=== PATIENT | male | born 1945 | race Caucasian/White ===

== ENCOUNTER → 2018-06-11 | Outpatient (CLI) | payer MEDICARE | LOC: LAB FS 09:43 | PROVIDERS: ATTEND Urology | DX: R97.20 Elevated prostate specific antigen [PSA] (principal) | CPT/HCPCS: 36415; 84153 ==

== ENCOUNTER 2023-01-08 19:38 | Emergency (ER) | payer MEDICARE ==
--- NOTE | 2023-01-08 19:48 | ED General ---
General Stated Complaint: FALL History of Present Illness Date Seen by Provider: Jan 08, 2023 Time Seen by Provider: 19:46 Initial Comments 77-year-old male brought in by his following a fall. Patient has a right uvymg-yrg-ntpu amputation. He reports that somehow he fell trying to transfer from his chair to his wheelchair and was a unable to get back up to his wheelchair his chair. Patient reports that he laid there for approximately 4 hours. He did not lose consciousness his eyes and his head. Patient has no other complaints. Allergies and Home Medications Allergies Coded Allergies: No Known Drug Allergies (Unverified , 01/08/23) Patient Home Medication List Home Medication List Reviewed: Yes Atorvastatin Calcium (Atorvastatin Calcium) 40 Mg Tablet, 40 MG PO HS, (Report ed) Entered as Reported by: PIA GARCIA on 01/08/232021 Last Action: New Order Lisinopril (Lisinopril) 10 Mg Tablet, 10 MG PO DAILY, (Reported) Entered as Reported by: PIA GARCIA on 01/08/232021 Last Action: New Order Tamsulosin HCl (Flomax) 0.4 Mg Cap, (Reported) Entered as Reported by: PIA GARCIA on 01/08/232021 Last Action: New Order Review of Systems Review of Systems Constitutional: No chills, No fever EENTM: no symptoms reported Respiratory: no symptoms reported Cardiovascular: no symptoms reported Gastrointestinal: no symptoms reported Genitourinary: no symptoms reported Musculoskeletal: see HPI Skin: no symptoms reported Psychiatric/Neurological: No Symptoms Reported Physical Exam Vital Signs Capillary Refill : Height, Weight, BMI Height: '" Weight: lbs. oz. 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 Skin: Normal Color, Warm/Dry Progress/Results/Core Measures Suspected Sepsis SIRS Temperature: Pulse: Respiratory Rate: Laboratory Tests 01/08/23 19:55: White Blood Count 7.0 Blood Pressure / Mean: Laboratory Tests 01/08/23 19:55: Creatinine 1.25, Platelet Count 99L, Total Bilirubin 1.0 Results/Orders Lab Results Laboratory Tests Test 01/08/23 19:55 Range/Units White Blood Count 7.0 4.3-11.0 10^3/uL Red Blood Count 4.58 4.30-5.52 10^6/uL Hemoglobin 15.1 13.3-17.7 g/dL Hematocrit 46 40-54 % Mean Corpuscular Volume 99 80-99 fL Mean Corpuscular Hemoglobin 33 25-34 pg Mean Corpuscular Hemoglobin Concent 33 32-36 g/dL Red Cell Distribution Width 13.8 10.0-14.5 % Platelet Count 99 L 130-400 10^3/uL Mean Platelet Volume 12.8 H 9.0-12.2 fL Immature Granulocyte % (Auto) 0 % Neutrophils (%) (Auto) 86 H 42-75 % Lymphocytes (%) (Auto) 6 L 12-44 % Monocytes (%) (Auto) 5 0-12 % Eosinophils (%) (Auto) 2 0-10 % Basophils (%) (Auto) 0 0-10 % Neutrophils # (Auto) 6.0 1.8-7.8 10^3/uL Lymphocytes # (Auto) 0.4 L 1.0-4.0 10^3/uL Monocytes # (Auto) 0.4 0.0-1.0 10^3/uL Eosinophils # (Auto) 0.2 0.0-0.3 10^3/uL Basophils # (Auto) 0.0 0.0-0.1 10^3/uL Immature Granulocyte # (Auto) 0.0 0.0-0.1 10^3/uL Neutrophils % (Manual) 87 % Lymphocytes % (Manual) 9 % Monocytes % (Manual) 2 % Eosinophils % (Manual) 2 % Platelet Estimate DECREASED Blood Morphology Comment NORMAL Sodium Level 137 135-145 MMOL/L Potassium Level 4.0 3.6-5.0 MMOL/L Chloride Level 102 98-107 MMOL/L Carbon Dioxide Level 20 L 21-32 MMOL/L Anion Gap 15 H 5-14 MMOL/L Blood Urea Nitrogen 25 H 7-18 MG/DL Creatinine 1.25 0.60-1.30 MG/DL Estimat Glomerular Filtration Rate 60 BUN/Creatinine Ratio 20 Glucose Level 106 H 70-105 MG/DL Calcium Level 9.2 8.5-10.1 MG/DL Corrected Calcium 9.6 8.5-10.1 MG/DL Magnesium Level 2.2 1.6-2.4 MG/DL Total Bilirubin 1.0 0.1-1.0 MG/DL Aspartate Amino Transf (AST/SGOT) 21 5-34 U/L Alanine Aminotransferase (ALT/SGPT) 15 0-55 U/L Alkaline Phosphatase 71 40-136 U/L Troponin I < 0.30 <0.30 NG/ML Total Protein 7.8 6.4-8.2 GM/DL Albumin 3.5 3.2-4.5 GM/DL My Orders Orders - LIN,MARISOL L DO Cbc And Automated Diff (01/08/23 19:43) Comprehensive Metabolic Panel (01/08/23 19:43) Magnesium (01/08/23 19:43) Ua Culture If Indicated (01/08/23 19:43) Troponin I Fs (01/08/23 19:43) Ekg Tracing (01/08/23 19:43) Monitor-Rhythm Ecg Trace Only (01/08/23 19:43) Manual Differential (01/08/23 19:55) Ns Iv 1000 Ml (Ns Iv 1000 Ml) (01/08/23 20:51) Vital Signs/I&O Capillary Refill : Progress Note : Progress Note Patient with a mechanical fall due to gait instability from a right AKA. Patient's diagnostics as ordered reviewed and interpreted by me with no acute findings. He was mildly dehydrated. Patient was rehydrated and was feeling much better. Patient's family did arrive and will work with him to arrange a system for him to be checked on or have a Lifeline or similar protective measures in place. Patient was ready to be discharged home. He does report he has an appointment with urologist tomorrow. Patient was stable upon discharge. 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 Referrals: [facility] (PCP) Primary Care Physician JOAQUÍN ALAN MD (Family) Primary Care Physician Patient Instructions: Dehydration, Adult ED, Preventing Falls ED Add. Discharge Instructions: Please keep your appointment with your primary care doctors and urologist that you already have made. Please consider getting a Lifeline or similar monitor to help if you would fall again. MARISOL LIN DO Jan 08, 2023 19:48
[2023-01-08 20:00] LABS: BASOPHILS % (AUTO) 0 % (0-10); EOSINOPHILS # (AUTO) 0.2 10^3/uL (0.0-0.3); EOSINOPHILS % (AUTO) 2 % (0-10); HEMATOCRIT 46 % (40-54); HEMOGLOBIN 15.1 g/dL (13.3-17.7); LYMPHOCYTES # (AUTO) 0.4 10^3/uL (1.0-4.0); LYMPHOCYTES % (AUTO) 6 % (12-44); MEAN CORPUSCULAR HEMOGLOBIN 33 pg (25-34); MEAN CORPUSCULAR HGB CONC 33 g/dL (32-36); MEAN CORPUSCULAR VOLUME 99 fL (80-99); MEAN PLATELET VOLUME 12.8 fL (9.0-12.2); MONOCYTES # (AUTO) 0.4 10^3/uL (0.0-1.0); MONOCYTES % (AUTO) 5 % (0-12); NEUTROPHILS % (AUTO) 86 % (42-75); PLATELET COUNT 99 10^3/uL (130-400)
[2023-01-08] MEDS ORDERED: TMSL.4C (20:22)
[2023-01-08] MEDS ORDERED: ATOR40TA70 PO (20:22)
[2023-01-08] MEDS ORDERED: LISI10TA25 PO (20:22)
[2023-01-08 20:24] LABS: EOSINOPHILS % (MANUAL) 2 %; LYMPHOCYTES % (MANUAL) 9 %; MONOCYTES % (MANUAL) 2 %; NEUTROPHILS % (MANUAL) 87 %; PLATELET ESTIMATE DECREASED; RBC MORPH NORMAL
[2023-01-08 20:25] LABS: BUN/CREATININE RATIO 20; CALCIUM 9.2 MG/DL (8.5-10.1); CARBON DIOXIDE 20 MMOL/L (21-32); CHLORIDE 102 MMOL/L (98-107); CREATININE SERUM 1.25 MG/DL (0.60-1.30); GFR ESTIMATED 60; GLUCOSE 106 MG/DL (70-105); SODIUM 137 MMOL/L (135-145)
[2023-01-08 20:26] LABS: ALANINE AMINOTRANSFERASE 15 U/L (0-55); ALBUMIN 3.5 GM/DL (3.2-4.5); ALKALINE PHOSPHATASE 71 U/L (40-136); MAGNESIUM 2.2 MG/DL (1.6-2.4); TOTAL PROTEIN 7.8 GM/DL (6.4-8.2)
[2023-01-08] MEDS ORDERED: NS IV 1000 ML 1,000 ML IV STA (20:51)
[2023-01-08 22:10] VITALS: BP 130/86
== END 2023-01-08 22:15 | disposition home or self-care (01) ==
LOC: EDUNIT# 19:38 → ER FS 19:39
DX: R26.89 Other abnormalities of gait and mobility (principal); E86.0 Dehydration; Z89.611 Acquired absence of right leg above knee; W19.XXXA Unspecified fall, initial encounter
CPT/HCPCS: 36415; 80053; 83735; 84484; 85007; 85027; 93005; 93041

== ENCOUNTER 2023-01-20 17:41 | Emergency (ER) | payer MEDICARE ==
[~2023-01-20] VITALS: Ht 170 cm; Wt 72.0 kg
[~2023-01-20 17:41] MED LIST: ATOR40TA70 PO; LISI10TA25 PO; TMSL.4C
--- NOTE | 2023-01-20 18:42 | ED General ---
General Chief Complaint: Neurological Problems Stated Complaint: WEAKNESS Nursing Triage Note: PT TO ED FOR C/O GENERALIZED WEAKNESS ONSET X1 WK. PT'S FRIEND REPORTS PT WAS FOUND ON THE FLOOR AT HOME, WAS TREATED AT THAT TIME AT [facility]. PT ALSO REPORTS BEING TREATED FOR UTI. PT'S FRIEND REPORTS PT HAS BEEN "IN A FOG" SINCE FALLING. NO OTHER C/O VOICED. Source of Information: Patient, Other (neighbor) Exam Limitations: No Limitations History of Present Illness Date Seen by Provider: Jan 20, 2023 Time Seen by Provider: 18:00 Initial Comments 77-year-old male presents to the ER with complaint of weakness for approximately the last week. He states that a week and a half ago he was found on the floor by his neighbor and brought to the emergency room in [place]. Received IV fluids at that time and was discharged. States that he has generally not felt well since then. The next day he saw his urologist who diagnosed him with a UTI and started him on an antibiotic. He is complains of sleeping all day, and feeling foggy. He states that he urinates frequently, denies dysuria. Denies dizziness, chest pain, shortness of air, abdominal pain, nausea, vomiting, diarrhea. He does drink alcohol daily, states he drinks approximately 2 ounces. 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 States it was likely related to his smoking. Patient still smokes. Patient states he does not drink a lot of water. Allergies and Home Medications Allergies Coded Allergies: No Known Drug Allergies (Unverified , 01/08/23) Patient Home Medication List Home Medication List Reviewed: Yes Atorvastatin Calcium (Atorvastatin Calcium) 40 Mg Tablet, 40 MG PO HS, (Reported) Entered as Reported by: PIA GARCIA on 01/08/232021 Cefuroxime Axetil (Cefuroxime) 500 Mg Tablet, 500 MG PO BID Prescribed by: Aniya Bean on 01/20/232132 Lisinopril (Lisinopril) 10 Mg Tablet, 10 MG PO DAILY, (Reported) Entered as Reported by: PIA GARCIA on 01/08/232021 Tamsulosin HCl (Flomax) 0.4 Mg Cap, (Reported) Entered as Reported by: PIA GARCIA on 01/08/232021 Review of Systems Review of Systems Constitutional: see HPI Past Nmoztzc-Ejvyyf-Aepfon Hx Patient Social History Tobacco Use?: No Use of E-Cig and/or Vaping dev: Yes Use of E-Cig and/or Vaping [place]: Current Everyday User Substance use?: No Alcohol Use?: Yes Alcohol Frequency: Daily Pt feels they are or have been: No Immunizations Up To Date First/Initial COVID19 Vaccinat: Date ? Second COVID19 Vaccination Bakari: Date ? Third COVID19 Vaccination Date: Date ? Past Medical History Surgery/Hospitalization HX: poor historian: R AKA, HTN, Hyperlipidemia Physical Exam Vital Signs Vital Signs - First Documented 01/20/23 18:22 Temp 37.0 Pulse 80 Resp 20 B/P (MAP) 134/95 (108) Pulse Ox 98 O2 Delivery Room Air Capillary Refill : Less Than 3 Seconds Height, Weight, BMI Height: '" Weight: lbs. oz. kg; 24.00 BMI Method: General Appearance: No Apparent Distress, WD/WN Neck: Normal Inspection, Supple Respiratory: Lungs Clear, Normal Breath Sounds, No Accessory Muscle Use, No Respiratory Distress Cardiovascular: Regular Rate, Rhythm Extremity: Normal Inspection, Normal Range of Motion, Other (Prosthesis on right smbzk-axg-dkwv amputation) Neurologic/Psychiatric: Alert, Normal Mood/Affect Skin: Normal Color, Warm/Dry Progress/Results/Core Measures Suspected Sepsis SIRS Temperature: Pulse: 80 Respiratory Rate: 20 Laboratory Tests 01/20/23 19:00: White Blood Count 6.8 Blood Pressure 134 /95 Mean: 108 Laboratory Tests 01/20/23 19:00: Creatinine 1.18, Platelet Count 154, Total Bilirubin 1.0 Results/Orders Lab Results Laboratory Tests Test 01/20/23 19:00 01/20/23 20:37 Range/Units White Blood Count 6.8 4.3-11.0 10^3/uL Red Blood Count 4.23 L 4.30-5.52 10^6/uL Hemoglobin 13.5 13.3-17.7 g/dL Hematocrit 42 40-54 % Mean Corpuscular Volume 99 80-99 fL Mean Corpuscular Hemoglobin 32 25-34 pg Mean Corpuscular Hemoglobin Concent 32 32-36 g/dL Red Cell Distribution Width 13.4 10.0-14.5 % Platelet Count 154 130-400 10^3/uL Mean Platelet Volume 12.7 H 9.0-12.2 fL Immature Granulocyte % (Auto) 1 % Neutrophils (%) (Auto) 68 42-75 % Lymphocytes (%) (Auto) 17 12-44 % Monocytes (%) (Auto) 9 0-12 % Eosinophils (%) (Auto) 5 0-10 % Basophils (%) (Auto) 1 0-10 % Neutrophils # (Auto) 4.6 1.8-7.8 10^3/uL Lymphocytes # (Auto) 1.1 1.0-4.0 10^3/uL Monocytes # (Auto) 0.6 0.0-1.0 10^3/uL Eosinophils # (Auto) 0.3 0.0-0.3 10^3/uL Basophils # (Auto) 0.1 0.0-0.1 10^3/uL Immature Granulocyte # (Auto) 0.1 0.0-0.1 10^3/uL Sodium Level 135 135-145 MMOL/L Potassium Level 4.2 3.6-5.0 MMOL/L Chloride Level 106 98-107 MMOL/L Carbon Dioxide Level 20 L 21-32 MMOL/L Anion Gap 9 5-14 MMOL/L Blood Urea Nitrogen 13 7-18 MG/DL Creatinine 1.18 0.60-1.30 MG/DL Estimat Glomerular Filtration Rate 64 BUN/Creatinine Ratio 11 Glucose Level 101 70-105 MG/DL Calcium Level 8.8 8.5-10.1 MG/DL Corrected Calcium 9.3 8.5-10.1 MG/DL Magnesium Level 2.1 1.6-2.4 MG/DL Total Bilirubin 1.0 0.1-1.0 MG/DL Aspartate Amino Transf (AST/SGOT) 17 5-34 U/L Alanine Aminotransferase (ALT/SGPT) 18 0-55 U/L Alkaline Phosphatase 50 40-136 U/L B-Type Natriuretic Peptide 127.7 H <100.0 PG/ML Total Protein 7.0 6.4-8.2 GM/DL Albumin 3.4 3.2-4.5 GM/DL Serum Alcohol < 10 <10 MG/DL Urine Color YELLOW Urine Clarity CLEAR Urine pH 6.0 5-9 Urine Specific [place] 1.010 L 1.016-1.022 Urine Protein NEGATIVE NEGATIVE Urine Glucose (UA) NEGATIVE NEGATIVE Urine Ketones NEGATIVE NEGATIVE Urine Nitrite NEGATIVE NEGATIVE Urine Bilirubin NEGATIVE NEGATIVE Urine Urobilinogen 0.2 < = 1.0 MG/DL Urine Leukocyte Esterase 3+ H NEGATIVE Urine RBC (Auto) 1+ H NEGATIVE Urine RBC 2-5 H /HPF Urine WBC 10-25 H /HPF Urine Squamous Epithelial Cells 0-2 /HPF Urine Crystals PRESENT H /LPF Urine Amorphous Sediment RARE RICHARD URATES H /LPF Urine Bacteria FEW H /HPF Urine Casts NONE /LPF Urine Mucus NEGATIVE /LPF Urine Culture Indicated YES My Orders Orders - ANIYA CHINO APRN Cbc And Automated Diff (01/20/23 18:36) Magnesium (01/20/23 18:36) Chest 1 View, Ap/Pa Only (01/20/23 18:36) Ekg Tracing (01/20/23 18:36) Comprehensive Metabolic Panel (01/20/23 18:36) Monitor-Rhythm Ecg Trace Only (01/20/23 18:36) Ed Iv/Invasive Line Start (01/20/23 18:36) Ua Culture If Indicated (01/20/23 18:36) Ns Iv 1000 Ml (Ns Iv 1000 Ml) (01/20/23 18:45) Alcohol (01/20/23 18:42) Bnp Reynolds (01/20/23 19:05) Urine Culture (01/20/23 20:37) Ceftriaxone Iv/Im (Ceftriaxone Iv/Im) (01/20/23 21:45) Medications Given in ED Current Medications Medications Dose Ordered Sig/Alfred Route Start Time Stop Time Status Last Admin Dose Admin Ceftriaxone Sodium 1000 mg/ Sodium Chloride 50 ml @ 100 mls/hr ONCE ONCE IV 01/20/23 21:45 01/20/23 22:14 01/20/23 21:50 100 MLS/HR Vital Signs/I&O 01/20/23 18:22 Temp 37.0 Pulse 80 Resp 20 B/P (MAP) 134/95 (108) Pulse Ox 98 O2 Delivery Room Air Capillary Refill : Less Than 3 Seconds Blood Pressure Mean: 108 Progress Note : Progress Note Patient seen and evaluated, resting comfortably in bed, no acute distress. Based on exam and symptoms, work-up initiated including CBC, CMP, magnesium EKG, chest x-ray, UA. 1 L of IV fluids ordered. 2130 Labs and imaging reviewed. Chest x-ray shows mild central vascular congestion, no consolidation or pneumothorax. Heart size appears normal. CBC grossly normal. CMP grossly normal. CO2 slightly decreased 20. GFR decreased 64, similar to labs drawn on 01/08/2023. Creatinine and BUN normal. BNP is elevated indicating increased left ventricular end diastolic dilatation which may be seen in CHF. Mildly elevated 127.7. Serum alcohol negative. Urinalysis shows 3+ leukocytes, 1+ RBCs, 10-25 WBCs, few bacteria. He reports that he has not been taking his clindamycin consistently because he states it makes him feel unwell. Will give Rocephin and discharge with cefuroxime instead in hopes that patient will tolerate this better. Patient instructed to follow-up with urology and his UTI. And to follow-up with primary care provider regarding the vascular congestion. Patient is stable for discharge. Discharge instructions and return precautions provided. ECG Initial ECG Impression Date: Jan 20, 2023 Initial ECG Impression Time: 18:50 Initial ECG Rate: 74 Initial ECG Rhythm: Normal Sinus Initial ECG Intervals: NM (207) Initial ECG Impression: Nonspecific Changes Initial ECG Comparisson: Unchanged Comment New prolonged NM interval. Slight ST elevation in V2, no elevation in the other leads, no significant Q waves or T wave inversion. EKG appears similar to EKG done on 01/08, except for new increased NM interval. Diagnostic Imaging Diagonstic Imaging: Xray Plain Films/CT/US/NM/MRI: chest Comments [facility] [place], [place] NAME: ELIANE [facility] REC#: [id number] PT STATUS: REG ER : 1945 PHYSICIAN: ANIYA CHINO APRN ADMIT DATE: 01/20/23/ER Signed Date of Exam:01/20/23 CHEST 1 VIEW, AP/PA ONLY Indication: Chest pain and weakness, patient was found down Frontal chest obtained at 7:00 hours p.m. Heart and mediastinal silhouette are normal in appearance. There is mild central vascular congestion. There is no focal infiltrate or pneumothorax or pleural fluid. IMPRESSION: Mild central vascular congestion. No consolidation or pneumothorax or pleural fluid. Dictated by: Dictated on workstation # [id number] Dict: 01/20/231858 Trans: 01/20/231914 SANDEEP [id number] Interpreted by: EVI LEROY MD Electronically signed by: EVI LEROY MD 01/20/231914 Departure Impression Primary Impression: Urinary tract infection Disposition: 01 HOME, SELF-CARE Condition: Stable Departure-Patient Inst. Decision time for Depature: 21:31 Referrals: JOAQUÍN ALAN MD (PCP/Family) Primary Care Physician Patient Instructions: Urinary tract infections in adults Add. Discharge Instructions: Complete full course of cefuroxime as prescribed. You will take it twice a day for 10 days. Dispose of your ciprofloxacin. Follow-up with your urologist. Follow-up with your primary care provider regarding the extra fluid on your lungs. You may need an echocardiogram. Return for any new, concerning, or worsening symptoms. All discharge instructions reviewed with patient and/or family. Voiced understanding. Scripts Cefuroxime Axetil (Cefuroxime) 500 Mg Tablet 500 MG PO BID for 10 Days, #20 TAB 0 Refills Prov: ANIYA CHINO APRN 01/20/23 Copy Copies To 1: JOAQUÍN ALAN MD, BRITTANY R APRN Jan 20, 2023 18:42
[2023-01-20] MEDS ORDERED: NS IV 1000 ML 1,000 ML IV SCH (18:45)
--- NOTE | 2023-01-20 19:01 | Diagnostic Imaging Report ---
Indication: Chest pain and weakness, patient was found down Frontal chest obtained at 7:00 hours p.m. Heart and mediastinal silhouette are normal in appearance. There is mild central vascular congestion. There is no focal infiltrate or pneumothorax or pleural fluid. IMPRESSION: Mild central vascular congestion. No consolidation or pneumothorax or pleural fluid. Dictated by: Dictated on workstation # [id number]
[2023-01-20 19:13] LABS: BASOPHILS # (AUTO) 0.1 10^3/uL (0.0-0.1); BASOPHILS % (AUTO) 1 % (0-10); EOSINOPHILS # (AUTO) 0.3 10^3/uL (0.0-0.3); EOSINOPHILS % (AUTO) 5 % (0-10); HEMATOCRIT 42 % (40-54); HEMOGLOBIN 13.5 g/dL (13.3-17.7); LYMPHOCYTES # (AUTO) 1.1 10^3/uL (1.0-4.0); LYMPHOCYTES % (AUTO) 17 % (12-44); MEAN CORPUSCULAR HEMOGLOBIN 32 pg (25-34); MEAN CORPUSCULAR HGB CONC 32 g/dL (32-36); MEAN CORPUSCULAR VOLUME 99 fL (80-99); MEAN PLATELET VOLUME 12.7 fL (9.0-12.2); MONOCYTES # (AUTO) 0.6 10^3/uL (0.0-1.0); MONOCYTES % (AUTO) 9 % (0-12); NEUTROPHILS # (AUTO) 4.6 10^3/uL (1.8-7.8); NEUTROPHILS % (AUTO) 68 % (42-75); PLATELET COUNT 154 10^3/uL (130-400); WHITE BLOOD COUNT 6.8 10^3/uL (4.3-11.0)
[2023-01-20 19:28] LABS: ALBUMIN 3.4 GM/DL (3.2-4.5); CHLORIDE 106 MMOL/L (98-107); POTASSIUM 4.2 MMOL/L (3.6-5.0); SODIUM 135 MMOL/L (135-145)
[2023-01-20 19:29] LABS: CALCIUM 8.8 MG/DL (8.5-10.1)
[2023-01-20 19:30] LABS: GLUCOSE 101 MG/DL (70-105)
[2023-01-20 19:31] LABS: CARBON DIOXIDE 20 MMOL/L (21-32)
[2023-01-20 19:34] LABS: ALKALINE PHOSPHATASE 50 U/L (40-136); CREATININE SERUM 1.18 MG/DL (0.60-1.30); GFR ESTIMATED 64
[2023-01-20 19:35] LABS: BUN/CREATININE RATIO 11
[2023-01-20 19:37] LABS: ALANINE AMINOTRANSFERASE 18 U/L (0-55); MAGNESIUM 2.1 MG/DL (1.6-2.4)
[2023-01-20 21:18] LABS: BILIRUBIN,URINE NEGATIVE (NEGATIVE); CLARITY,URINE CLEAR; COLOR,URINE YELLOW; GLUCOSE, URINE (UA) NEGATIVE (NEGATIVE); KETONES,URINE NEGATIVE (NEGATIVE); NITRITE,URINE NEGATIVE (NEGATIVE); PROTEIN,URINE NEGATIVE (NEGATIVE)
[2023-01-20 21:19] LABS: AMORPHOUS SEDIMENT,UR RARE AMOR URATES /LPF; BACTERIA,URINE FEW /HPF; LEUKOCYTE ESTERASE ,URINE 3+ (NEGATIVE); SQUAMOUS EPITHELIAL CELL,UR 0-2 /HPF
[2023-01-20] MEDS ORDERED: CEFU500T63 PO (21:33)
[2023-01-20] MEDS ORDERED: cefTRIAXone IV/IM 1,000 MG in NS (IVPB) 50 ML 50 ML IV ONE (21:45)
[2023-01-20 22:31] VITALS: BP 148/98
== END 2023-01-20 22:25 | disposition home or self-care (01) ==
LOC: EDUNIT# 17:41 → ER 17:43
DX: N39.0 Urinary tract infection, site not specified (principal); F17.290 Nicotine dependence, other tobacco product, uncomplicated
CPT/HCPCS: 71045; 80053; 81000; 83735; 83880; 85025; 87088; 93005; 99284; G0480; 36415; 80320

== ENCOUNTER 2023-02-04 21:33 | Inpatient (IN) | payer MEDICARE ==
[~2023-02-04] VITALS: Ht 170.2 cm; Wt 58.6 kg
[~2023-02-04 21:33] MED LIST changes: +CEFU500T63 PO; -TMSL.4C; +TMSL.4C PO
--- NOTE | 2023-02-04 21:41 | ED General ---
General Stated Complaint: FALL Source of Information: Patient Exam Limitations: No Limitations History of Present Illness Date Seen by Provider: Feb 04, 2023 Time Seen by Provider: 21:27 Initial Comments 77-year-old male presents to the emergency department today after he was found in his home on the floor by his neighbor. He lives at home by himself and has had several similar instances, most recently on January 08. His neighbors come to check on him intermittently. They state they had not checked on him since Saturday. When he went over this evening he found him in the floor. He does not know how long he has been there. When asked how he fell he states "who said I fell." When discussing the neighbors recollection of events he states "he is full of shit." He denies any pain anywhere. I discussed this with his 2 friends who are bedside and they state he is usually "sharp as attack" and that the confusion is quite abnormal for him. All other systems reviewed and negative except documented per HPI. Voice recognition software was used to help create this chart Allergies and Home Medications Allergies Coded Allergies: No Known Drug Allergies (Unverified , 01/08/23) Patient Home Medication List Home Medication List Reviewed: Yes Atorvastatin Calcium (Atorvastatin Calcium) 40 Mg Tablet, 40 MG PO HS, (Reported) Entered as Reported by: PIA GARCIA on 01/08/232021 Cefuroxime Axetil (Cefuroxime) 500 Mg Tablet, 500 MG PO BID Prescribed by: Aniya Bean on 01/20/232132 Lisinopril (Lisinopril) 10 Mg Tablet, 10 MG PO DAILY, (Reported) Entered as Reported by: PIA GARCIA on 01/08/232021 Tamsulosin HCl (Flomax) 0.4 Mg Cap, (Reported) Entered as Reported by: PIA GARCIA on 01/08/232021 Review of Systems Review of Systems Constitutional: see HPI Past Xjnwclk-Acowfh-Gvmive Hx Patient Social History Tobacco Use?: No Use of E-Cig and/or Vaping dev: No Substance use?: No Alcohol Use?: No Immunizations Up To Date First/Initial COVID19 Vaccinat: Date ? Second COVID19 Vaccination Bakari: Date ? Third COVID19 Vaccination Date: Date ? Past Medical History Surgery/Hospitalization HX: poor historian: Jai RAWLS HTN, Hyperlipidemia Physical Exam Vital Signs Vital Signs - First Documented 02/04/23 21:33 Temp 36.7 Pulse 117 Resp 20 B/P (MAP) 134/101 (112) Pulse Ox 100 O2 Delivery Room Air Capillary Refill : Height, Weight, BMI Height: '" Weight: lbs. oz. kg; 24.00 BMI Method: General Appearance: No Apparent Distress, WD/WN HEENT: PERRL/EOMI, Normal ENT Inspection, Pharynx Normal Neck: Normal Inspection, Non Tender, Supple Respiratory: Chest Non Tender, Lungs Clear, Normal Breath Sounds, No Accessory Muscle Use, No Respiratory Distress Cardiovascular: Regular Rate, Rhythm, No Murmur, Normal Peripheral Pulses Gastrointestinal: Normal Bowel Sounds, No Organomegaly, Non Tender, Soft Extremity: Other (Right kabka-stq-fqpl amputation. 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 There is no skin breakdown.) Progress/Results/Core Measures Suspected Sepsis SIRS Temperature: Pulse: Respiratory Rate: Laboratory Tests 02/04/23 21:45: White Blood Count 6.8 Blood Pressure / Mean: Laboratory Tests 02/04/23 21:45: Creatinine 1.58H, Platelet Count 119L Results/Orders Lab Results Laboratory Tests Test 02/04/23 21:45 02/05/23 00:00 Range/Units White Blood Count 6.8 4.3-11.0 10^3/uL Red Blood Count 4.94 4.30-5.52 10^6/uL Hemoglobin 15.9 13.3-17.7 g/dL Hematocrit 50 40-54 % Mean Corpuscular Volume 102 H 80-99 fL Mean Corpuscular Hemoglobin 32 25-34 pg Mean Corpuscular Hemoglobin Concent 32 32-36 g/dL Red Cell Distribution Width 13.5 10.0-14.5 % Platelet Count 119 L 130-400 10^3/uL Mean Platelet Volume 12.5 H 9.0-12.2 fL Immature Granulocyte % (Auto) 1 % Neutrophils (%) (Auto) 69 42-75 % Lymphocytes (%) (Auto) 15 12-44 % Monocytes (%) (Auto) 12 0-12 % Eosinophils (%) (Auto) 2 0-10 % Basophils (%) (Auto) 1 0-10 % Neutrophils # (Auto) 4.7 1.8-7.8 10^3/uL Lymphocytes # (Auto) 1.0 1.0-4.0 10^3/uL Monocytes # (Auto) 0.8 0.0-1.0 10^3/uL Eosinophils # (Auto) 0.1 0.0-0.3 10^3/uL Basophils # (Auto) 0.1 0.0-0.1 10^3/uL Immature Granulocyte # (Auto) 0.0 0.0-0.1 10^3/uL Sodium Level 133 L 135-145 MMOL/L Potassium Level 5.0 3.6-5.0 MMOL/L Chloride Level 101 98-107 MMOL/L Carbon Dioxide Level 16 L 21-32 MMOL/L Anion Gap 16 H 5-14 MMOL/L Blood Urea Nitrogen 21 H 7-18 MG/DL Creatinine 1.58 H 0.60-1.30 MG/DL Estimat Glomerular Filtration Rate 45 BUN/Creatinine Ratio 13 Glucose Level 93 70-105 MG/DL Calcium Level 9.4 8.5-10.1 MG/DL Urine Color YELLOW Urine Clarity CLOUDY Urine pH 6.0 5-9 Urine Specific [place] 1.025 H 1.016-1.022 Urine Protein TRACE H NEGATIVE Urine Glucose (UA) NEGATIVE NEGATIVE Urine Ketones 1+ H NEGATIVE Urine Nitrite NEGATIVE NEGATIVE Urine Bilirubin 1+ H NEGATIVE Urine Urobilinogen 0.2 < = 1.0 MG/DL Urine Leukocyte Esterase 3+ H NEGATIVE Urine RBC (Auto) 2+ H NEGATIVE Urine RBC 0-2 /HPF Urine WBC 25-50 H /HPF Urine Squamous Epithelial Cells RARE /HPF Urine Renal Epithelial Cells RARE /HPF Urine Crystals PRESENT H /LPF Urine Calcium Oxalate Crystals RARE H /LPF Urine Bacteria NEGATIVE /HPF Urine Casts PRESENT /LPF Urine Hyaline Casts 2-5 H /LPF Urine Mucus LARGE H /LPF Urine Culture Indicated YES My Orders Orders - DUYEN READ DO Cbc And Automated Diff (02/04/23 21:38) Basic Metabolic Panel (02/04/23 21:38) Ns Iv 500 Ml (Ns Iv 500 Ml) (02/04/23 22:30) Ct Head Wo (02/04/23 22:35) Ua Culture If Indicated (02/04/23 22:35) Ed Admission (Communication) (02/04/23 23:07) Urine Culture (02/05/23 00:00) Vital Signs/I&O 02/04/23 21:33 Temp 36.7 Pulse 117 Resp 20 B/P (MAP) 134/101 (112) Pulse Ox 100 O2 Delivery Room Air 02/05/23 00:00 Intake Total 500 ml Balance 500 ml Capillary Refill : Departure Communication (Admissions) Patient is hemodynamically stable, neurovascular intact though he is quite confused. He continues to think that his is " in my house." She actually for 5 years ago from a heart attack. Unfortunately there is also very complicated social situation which his children apparently are not really very helpful in his care. He is still his own medical decision maker at present. He has 2 friends that come and check on him fairly regularly but this is getting more more difficult. With his level of confusion and recent falls I do not think he is safe to go home. He does not have any apparent injuries from his falls he is somewhat dehydrated with normal RODRIGO evidenced by his elevated creatinine and BUN. He is given some IV fluids here and I spoke with Dr. Cedeño who accepts the patient in admission. He is unclear the cause of his confusion at this time. CT scan of his head is negative for any acute intracranial abnormalities. I have inability reviewed these images. He is afebrile, nontoxic, no evidence for meningitis, encephalitis. He may have sleep deprivation from being on the floor which could cause a similar appearance. This may also be related to UTI, which his friend states he has had recently. He was unable to provide a urine sample and refused catheter here so we will wait him to pass urine however he has no leukocytosis and he is afebrile, not a septic picture. Impression Primary Impression: Confusion Additional Impression: Dehydration Disposition: 30 STILL A PATIENT Condition: Stable Admissions Decision to Admit Reason: Admit from ER (General) Departure-Patient Inst. Referrals: JOAQUÍN ALAN MD (PCP/Family) Primary Care Physician DUYEN READ DO Feb 04, 2023 21:40
[2023-02-04 21:53] LABS: BASOPHILS # (AUTO) 0.1 10^3/uL (0.0-0.1); BASOPHILS % (AUTO) 1 % (0-10); EOSINOPHILS # (AUTO) 0.1 10^3/uL (0.0-0.3); EOSINOPHILS % (AUTO) 2 % (0-10); HEMATOCRIT 50 % (40-54); HEMOGLOBIN 15.9 g/dL (13.3-17.7); LYMPHOCYTES % (AUTO) 15 % (12-44); MEAN CORPUSCULAR HEMOGLOBIN 32 pg (25-34); MEAN CORPUSCULAR HGB CONC 32 g/dL (32-36); MEAN CORPUSCULAR VOLUME 102 fL (80-99); MEAN PLATELET VOLUME 12.5 fL (9.0-12.2); MONOCYTES # (AUTO) 0.8 10^3/uL (0.0-1.0); MONOCYTES % (AUTO) 12 % (0-12); NEUTROPHILS # (AUTO) 4.7 10^3/uL (1.8-7.8); NEUTROPHILS % (AUTO) 69 % (42-75); PLATELET COUNT 119 10^3/uL (130-400); WHITE BLOOD COUNT 6.8 10^3/uL (4.3-11.0)
[2023-02-04 22:18] LABS: CALCIUM 9.4 MG/DL (8.5-10.1); CREATININE SERUM 1.58 MG/DL (0.60-1.30)
[2023-02-04] MEDS: NS IV 500 ML 500 ML IV SCH ×2 (22:26→22:45)
[2023-02-05] VITALS (7 sets, daily range): BP systolic 110–160; BP diastolic 70–92
[2023-02-05 00:11] LABS: CLARITY,URINE CLOUDY; COLOR,URINE YELLOW; GLUCOSE, URINE (UA) NEGATIVE (NEGATIVE); KETONES,URINE 1+ (NEGATIVE); LEUKOCYTE ESTERASE ,URINE 3+ (NEGATIVE); NITRITE,URINE NEGATIVE (NEGATIVE); PROTEIN,URINE TRACE (NEGATIVE)
[2023-02-05 00:22] LABS: BACTERIA,URINE NEGATIVE /HPF; BILIRUBIN,URINE 1+ (NEGATIVE); RBC,URINE 0-2 /HPF; SQUAMOUS EPITHELIAL CELL,UR RARE /HPF; WBC,URINE 25-50 /HPF
[2023-02-05 00:23] LABS: CALCIUM OXALATE CRYSTALS,UR RARE /LPF; RENAL EPITHELIAL CELLS,URINE RARE /HPF
[2023-02-05] MEDS ORDERED: ONDANSETRON INJECTION 4 MG/2 ML (SDV) IV PRN ×3 (02:00→10:00)
[2023-02-05] MEDS ORDERED: NS IV 1000 ML 1,000 ML IV SCH (02:00)
[2023-02-05] MEDS ORDERED: MILK OF MAGNESIA 400 MG/5 ML 30 ML UDC PO PRN (05:15)
[2023-02-05] MEDS ORDERED: diphenhydrAMINE 25 MG TABLET PO PRN (05:15)
[2023-02-05] MEDS ORDERED: HYDROmorphone INJECTION 2 MG/ML VIAL IV PRN (05:15)
[2023-02-05] MEDS ORDERED: oxyCODONE IMMEDIATE RELEASE 5 MG TABLET PO PRN (05:15)
[2023-02-05] MEDS ORDERED: ANTACID SUSPENSION 30 ML UDC PO PRN ×2 (05:15→10:00)
[2023-02-05] MEDS ORDERED: ONDANSETRON 4 MG ORAL DISSOLVE TABLET PO PRN (05:15)
[2023-02-05] MEDS ORDERED: CALCIUM CARBONATE 500 MG CHEW TABLET PO PRN (05:15)
[2023-02-05] MEDS ORDERED: LACTULOSE SYRUP 10GM/15ML 30ML UDC PO PRN (05:15)
[2023-02-05] MEDS ORDERED: ACETAMINOPHEN 325 MG TABLET PO PRN (05:15)
[2023-02-05] MEDS ORDERED: diphenhydrAMINE INJ 50 MG/ML VIAL IVP PRN (05:15)
[2023-02-05] MEDS ORDERED: BISACODYL 10 MG SUPPOSITORY PR PRN (05:15)
[2023-02-05 05:42] LABS: BASOPHILS % (AUTO) 1 % (0-10); EOSINOPHILS # (AUTO) 0.1 10^3/uL (0.0-0.3); MEAN PLATELET VOLUME 12.8 fL (9.0-12.2)
[2023-02-05 05:44] LABS: EOSINOPHILS % (AUTO) 3 % (0-10); HEMATOCRIT 45 % (40-54); HEMOGLOBIN 14.9 g/dL (13.3-17.7); LYMPHOCYTES # (AUTO) 0.9 10^3/uL (1.0-4.0); LYMPHOCYTES % (AUTO) 18 % (12-44); MEAN CORPUSCULAR HEMOGLOBIN 33 pg (25-34); MEAN CORPUSCULAR HGB CONC 33 g/dL (32-36); MEAN CORPUSCULAR VOLUME 99 fL (80-99); MONOCYTES # (AUTO) 0.6 10^3/uL (0.0-1.0); MONOCYTES % (AUTO) 11 % (0-12); NEUTROPHILS # (AUTO) 3.3 10^3/uL (1.8-7.8); NEUTROPHILS % (AUTO) 67 % (42-75); PLATELET COUNT 123 10^3/uL (130-400)
[2023-02-05] MEDS: NS IV 1000 ML 1,000 ML IV SCH ×2 (05:46→21:14)
[2023-02-05 05:47] LABS: ALBUMIN 3.5 GM/DL (3.2-4.5); POTASSIUM 4.5 MMOL/L (3.6-5.0)
[2023-02-05 05:48] LABS: CALCIUM 8.9 MG/DL (8.5-10.1)
[2023-02-05 05:50] LABS: TOTAL PROTEIN 6.9 GM/DL (6.4-8.2)
[2023-02-05 05:52] LABS: BILIRUBIN,TOTAL 2.4 MG/DL (0.1-1.0)
[2023-02-05 05:53] LABS: CREATININE SERUM 1.63 MG/DL (0.60-1.30)
--- NOTE | 2023-02-05 07:01 | Diagnostic Imaging Report ---
EXAMINATION: CT head without contrast. TECHNIQUE: Multiple contiguous axial images were obtained through the brain without the use of intravenous contrast. All CT scans use one or more of the following dose optimizing techniques: automated exposure control, MA and/or KvP adjustment based on patient size and exam type or iterative reconstruction. HISTORY: confusion COMPARISON: None available. FINDINGS: Mild diffuse cerebral volume loss with proportional enlargement of the ventricles and sulci. No abnormal attenuation of brain parenchyma is present. No acute intracranial hemorrhage or abnormal extra-axial fluid collections are present. No hyperdense vessel. The calvarium is intact. The mastoid air cells are clear. The visualized paranasal sinuses are clear. The orbits are normal. IMPRESSION: 1. No acute intracranial abnormality. 2. Mild volume loss. Dictated by: Dictated on workstation # [id number]
[2023-02-05] MEDS: ENOXAPARIN 40 MG/0.4 ML SYRINGE SC SCH (09:24)
[2023-02-05] MEDS: DOCUSATE SODIUM 100 MG CAPSULE PO SCH ×2 (09:25→20:28)
[2023-02-05] MEDS: SENNOSIDES 8.6 MG TABLET PO SCH ×2 (09:25→20:28)
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
[2023-02-05] MEDS ORDERED: D5 1/2 NS 1,000 ML IV 1,000 ML IV PRN (10:00)
[2023-02-05] MEDS ORDERED: 1/2 NS IV SOLUTION 1000 ML 1,000 ML IV PRN (10:00)
[2023-02-05] MEDS ORDERED: SENNA W/DOCUSATE TABLET PO PRN (10:00)
[2023-02-05] MEDS ORDERED: ONDANSETRON 4 MG ORAL DISSOLVE TABLET SL PRN (10:00)
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
[2023-02-05] MEDS: LORazepam 1 MG TABLET PO PRN (10:33)
[2023-02-05] MEDS: THIAMINE INJECTION 100 MG, FOLIC ACID INJECTION 1 MG, MAGNESIUM SULFATE 2 GM, MULTIVITA... IV SCH ×5 (10:46)
[2023-02-05 11:14] LABS: AMPHETAMINE SCREEN, URINE NEGATIVE (NEGATIVE); BARBITURATE SCREEN URINE NEGATIVE (NEGATIVE); CANNABINOID SCREEN, URINE NEGATIVE (NEGATIVE); COCAINE SCREEN URINE NEGATIVE (NEGATIVE); METHADONE STAT NEGATIVE (NEGATIVE); OPIATE SCREEN URINE NEGATIVE (NEGATIVE); OXYCODONE STAT NEGATIVE (NEGATIVE); TRICYCLIC ANTIDEPRESSANTS SCRE NEGATIVE (NEGATIVE)
--- NOTE | 2023-02-05 12:32 | Speech Therapy Progress Note ---
Therapy Progress Note The clinician received the consultation for a cognitive linguistic evaluation and the patient's medical chart was reviewed. The clinician attempted the evaluation at 1212 on this date. Upon entrance to the patient's room, the patient was seated upright in the recliner with his eyes closed. The patient initially responded to the clinician's greeting verbally. The patient remained with eyes closed the entirety of the evaluation attempt. The patient stated "no" to orientation questions including his name, date of , and location. Following, the patient shook his head "no" to orientation questions including the day of the week, month, and year. The patient only verbally responded to a question regarding his location to which he reported he was at a "grocery store" in "[place]." The clinician provided the rationale for the assessment and ve rbal encouragement for appropriate participation. The patient continues to remain with eyes closed and limited non-verbal responses to the clinician. The clinician will re-attempt the assessment when the patient is able to appropriately participate. Thank you for the consultation. BRANNON ARREOLA Feb 05, 2023 12:32
--- NOTE | 2023-02-05 14:23 | Physical Therapy Evaluation ---
PT Evaluation-General Medical Diagnosis Admission Date Feb 05, 2023 at 01:28 Medical Diagnosis: AMS Onset Date: Feb 05, 2023 Therapy Diagnosis Therapy Diagnosis: Gait deficit, decreased strength. 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 Patients son reports patient does not like wearing his prosthesis, however to his knowledge there is no issues with the fit. Referral Physician: Dr. Cedeño Reason for Referral: Evaluation/Treatment Medical History Reviewed History: Yes Social History Home: Multilevel Current Living Status: Alone Entry Into Home: Stairs With Railing PT Steps Into Home: 3 PT Steps Inside Home: 14 Prior Prior Level of Function SCALE: Activities may be completed with or without assistive devices. 3-Mlmposkfzl-rgtrgby completes the activity by him/herself with no assistance from a helper. 5-Set-up or Clean-up Assistance-helper sets up or cleans up; patient completes activity. [place] assists only prior to or following the activity. 4-Supervision or Touching Assistance-helper provides verbal cues and/or touching/steadying and/or contact guard assistance as patient completes activity. Assistance may be provided throughout the activity or intermittently. 3-Partial/Moderate Assistance-helper does LESS THAN HALF the effort. [place] lifts, holds or supports trunk or limbs, but provides less than half the effort. 2-Substantial/Maximal Assistance-helper does MORE THAN HALF the effort. [place] lifts or holds trunk or limbs and provides more than half the effort. 2-Smtqsiavy-nfthkh does ALL the effort. Patient does none of the effort to complete the activity. Or, the assistance of 2 or more helpers is required for the patient to complete the activity. If activity was not attempted, code reason: 7-Patient Refused. 9-Not Applicable-not attempted and the patient did not perform the activity before the current illness, exacerbation or injury. 10-Not Attempted due to Environmental Limitations-(lack of equipment, weather restraints, etc.). 88-Not Attempted due to Medical Conditions or Safety Concerns. Bed Mobility: 6 Transfers (B,C,W/C): 6 Stairs: 6 Patients son reports he and his father have a strained relationship, so he is not completely for sure how he moves. But thinks that he sits on his bottom to scoot up the split level stairs, 7 steps each, and then has a wheelchair on each floor and an electric scooter that he uses in the garage. PT Evaluation-Current Subjective Patient very confused and uncooperative. Able to identify his name, but nothing else. Reports no pain at this time. Objective Patient Orientation: Person ROM/Strength ROM Lower Extremities WFLS BLEs all planes Strength Lower Extremities Patient unable to comprehend MMT however demonstrates ~3/5 BLEs all available planes. Sensory Vision: Wears Glasses Hearing: Impaired Hand Dominance: Right Sensation Right Lower Extremit: Intact Sensation Left Lower Extremity: Intact Transfers Roll Left to Right (QC): 2 Sit to Lying (QC): 2 Lying to Sitting/Side of Bed(Q: 2 Sit to Stand (QC): 2 Chair/Rrm-iu-Rthhn Xfer(QC): 2 Gait Does the Patient Walk?: No and Walking Goal NOT indicated Mode of Locomotion: Wheelchair Anticipated Mode of Locomotion: Wheelchair Balance Sitting Static: Fair Sitting Dynamic: Poor Standing Static: Poor Standing Dynamic: Poor Assessment/Needs Patient requires max A for all observed bed mobility and transfers. Patient uncooperative throughout most of the evaluation, however does stand with the FWW with max A. Patient requires max A for SPT from chair to the bed and max A for bed mobility. Patient in bed post treatment with all needs met, nursing in the room. Rehab Potential: Poor PT Airline Captain Goals Airline Captain Goals PT Mcfp Goals Time Frame: Mar 07, 2023 Roll Left & Right (QC): 4 Sit to Lying (QC): 4 Lying-Sitting on Side/Bed(QC): 4 Sit to Stand (QC): 4 Chair/Gof-nd-Gscga Xfer(QC): 4 Toilet Transfer (QC): 4 Does the Patient Walk: No and Walking Goal NOT indicated PT Plan Problem List Problem List: Activity Tolerance, Functional Strength, Safety, Balance, Gait, Transfer, Bed Mobility, ROM Treatment/Plan Treatment Plan: Continue Plan of Care Treatment Plan: Bed Mobility, Education, Functional Activity Vivi, Functional Strength, Group Therapy, Gait, Safety, Therapeutic Exercise, Transfers Treatment Duration: Mar 07, 2023 Frequency: 5 times per week Estimated Hrs Per Day: .25 hour per day Safety Risks/Education Patient Education: Transfer Techniques Teaching Recipient: Patient Teaching Methods: Demonstration, Discussion Response to Teaching: Reinforcement Needed Time Time In: 1127 Time Out: 1143 DATE: Feb 05, 2023 Total Billed Treatment Time: 16 Total Billed Treatment Visit, HOWARD CAMACHO PT Feb 05, 2023 14:23
[2023-02-05] MEDS: MAGNESIUM OXIDE 400 MG TABLET PO SCH (20:28)
[2023-02-06 00:31] VITALS: BP 119/74
[2023-02-06 03:38] VITALS: BP 131/85
[2023-02-06 05:23] LABS: BASOPHILS % (AUTO) 1 % (0-10); EOSINOPHILS # (AUTO) 0.2 10^3/uL (0.0-0.3); EOSINOPHILS % (AUTO) 5 % (0-10); HEMATOCRIT 41 % (40-54); HEMOGLOBIN 13.6 g/dL (13.3-17.7); LYMPHOCYTES % (AUTO) 23 % (12-44); MEAN CORPUSCULAR HEMOGLOBIN 32 pg (25-34); MEAN CORPUSCULAR HGB CONC 33 g/dL (32-36); MEAN CORPUSCULAR VOLUME 96 fL (80-99); MEAN PLATELET VOLUME 12.4 fL (9.0-12.2); MONOCYTES # (AUTO) 0.4 10^3/uL (0.0-1.0); MONOCYTES % (AUTO) 9 % (0-12); NEUTROPHILS # (AUTO) 2.8 10^3/uL (1.8-7.8); NEUTROPHILS % (AUTO) 62 % (42-75); PLATELET COUNT 105 10^3/uL (130-400); WHITE BLOOD COUNT 4.5 10^3/uL (4.3-11.0)
[2023-02-06 05:41] LABS: ALBUMIN 3.1 GM/DL (3.2-4.5); CALCIUM 8.4 MG/DL (8.5-10.1); CREATININE SERUM 1.22 MG/DL (0.60-1.30); POTASSIUM 4.1 MMOL/L (3.6-5.0); TOTAL PROTEIN 5.8 GM/DL (6.4-8.2)
[2023-02-06 07:15] VITALS: BP 127/73
[2023-02-06] MEDS: ENOXAPARIN 40 MG/0.4 ML SYRINGE SC SCH (09:14)
[2023-02-06] MEDS: DOCUSATE SODIUM 100 MG CAPSULE PO SCH ×2 (09:14→20:00)
[2023-02-06] MEDS: MAGNESIUM OXIDE 400 MG TABLET PO SCH ×2 (09:14→20:00)
[2023-02-06] MEDS: SENNOSIDES 8.6 MG TABLET PO SCH ×2 (09:14→20:00)
[2023-02-06] MEDS: THIAMINE INJECTION 100 MG, FOLIC ACID INJECTION 1 MG, MAGNESIUM SULFATE 2 GM, MULTIVITA... IV SCH ×5 (09:15)
--- NOTE | 2023-02-06 09:33 | Speech Therapy Progress Note ---
Therapy Progress Note The clinician re-attempted the cognitive linguistic evaluation at 0920 on this date. The patient was lying in bed, awake with eyes opened upon entrance to the room. The patient makes eye contact with the clinician however does not return the verbal greeting. The clinician initiates orientation questions and the patient does not participate or respond to any question provided (continues to make eye contact with the clinician). Regardless of verbal encouragement, the patient does not participate appropriately. At this time, the session was ended. ST to re-attempt the evaluation one additional time on the subsequent treatment date. BRANNON ARREOLA Feb 06, 2023 09:33
--- NOTE | 2023-02-06 11:35 | Occ Therapy Progress Note ---
Therapy Progress Note Patient follows instructional commands to touch therapist hand, answers taht he is CARLENE VELIZ. Reports he drove here. Patient refuses to participate inn skilled therapy and closes eyes when OT attempt to pursue session. OT positioned patient HOB for safety and comfort at time patient began snoring. OT will attempt at next available opportunity CHE ARENAS OT Feb 06, 2023 11:35
[2023-02-06 12:05] VITALS: BP 130/70
--- NOTE | 2023-02-06 12:09 | Progress Note - Hospitalist ---
NICOLÁSCAMPOS 02/06/23 1209: Subjective HPI/CC On Admission Date Seen by Provider: Feb 06, 2023 Time Seen by Provider: 09:40 CC: Found down at home with end stage dementia HPI: Mr. Bauer was sleepy this morning. He is A&O to person and time, but not place. He denies having a bowel movement or urinating overnight. Difficult to obtain history from patient. He denies any SOB, chest pain, or dysuria. Objective Exam Vital Signs Vital Signs Date Time Temp Pulse Resp B/P (MAP) Pulse Ox O2 Delivery O2 Flow Rate FiO2 02/06/23 07:18 97 Room Air 0.00 02/06/23 07:15 36.3 72 16 127/73 (91) 02/05/23 05:15 21 Capillary Refill : Less Than 3 Seconds General Appearance: No Apparent Distress HEENT: PERRL/EOMI Neck: Full Range of Motion Respiratory: Chest Non Tender, Lungs Clear, Normal Breath Sounds, No Accessory Muscle Use Cardiovascular: Regular Rate, Rhythm Gastrointestinal: Normal Bowel Sounds Extremity: Normal Range of Motion Neurologic/Psychiatric: Normal Mood/Affect, Disoriented Results/Procedures Lab Laboratory Tests 02/06/23 05:14 Patient resulted labs reviewed. Assessment/Plan Assessment and Plan Assess & Plan/Chief Complaint Assessment: Mr. Bauer is a 77 y/o male found down on 02/04. Plan: Dementia -rule out possible UTI -WBC WNL -urine tox + for benzo Alcohol withdrawals -[facility] protocol -monitor for changes Possible RODRIGO -2/2 Rhabdomyolysis vs UTI -CK 2749 - IV fluids ANNETTA CEDEÑO DO 02/06/23 2005: Subjective Subjective/Events-last exam Patient getting more agitated No pain is reported Alcohol withdrawal likely is the cause Vitamin supplementation maintained Review of Systems General: Fatigue, Malaise Neurological: Confusion Objective Exam General Appearance: WD/WN, Anxious, Chronically ill, Mild Distress Respiratory: Lungs Clear, Normal Breath Sounds Cardiovascular: Regular Rate, Rhythm Neurologic/Psychiatric: Alert, Disoriented Assessment/Plan Assessment and Plan Assess & Plan/Chief Complaint Alcohol withdrawal Vitamin supplementation Supervisory-Addendum Brief Verification & Attestation Participated in pt care: history, MDM, physical Personally performed: exam, history, MDM, supervision of care Care discussed with: Medical Student Procedures: n/a Results interpretation: Verified all documentation Verification and Attestation of Medical Student E/M Service A medical student performed and documented this service in my presence. I reviewed and verified all information documented by the medical student and made modifications to such information, when appropriate. I personally performed the physical exam and medical decision making. Annetta Cedeño, Feb 06, 2023,20:04 CAMPOS MONZON Feb 06, 2023 12:09 ANNETTA CEDEÑO DO Feb 06, 2023 20:05
[2023-02-06] MEDS ORDERED: CLOP75TA28 PO (13:38)
[2023-02-06] MEDS ORDERED: SULF-221 PO (13:38)
[2023-02-06] MEDS ORDERED: GBPN600T PO (13:38)
[2023-02-06] MEDS ORDERED: ATOR40TA70 PO (13:40)
[2023-02-06 16:17] VITALS: BP 128/81
--- NOTE | 2023-02-06 16:26 | Physical Therapy Daily Note ---
PT Daily Note-Current Subjective Pt found supine in bed pre-treatment. Pt is confused and believes he is in "[place]." States that he has been in bed all day. Pain Section J - Health Conditions 1. Rarely or not at all 2. Occasionally 3. Frequently 4. Almost constantly 8. Unable to answer Pain Effect on Sleep: 1 Pain Interference with Therapy: 1 Pain Interference w/Day-to-Day: 1 Mental Status Patient Orientation: Confused Transfers SCALE: Activities may be completed with or without assistive devices. 1-Givbdvatyh-untimdm completes the activity by him/herself with no assistance from a helper. 5-Set-up or Clean-up Assistance-helper sets up or cleans up; patient completes activity. [place] assists only prior to or following the activity. 4-Supervision or Touching Assistance-helper provides verbal cues and/or touching/steadying and/or contact guard assistance as patient completes activity. Assistance may be provided throughout the activity or intermittently. 3-Partial/Moderate Assistance-helper does LESS THAN HALF the effort. [place] lifts, holds or supports trunk or limbs, but provides less than half the effort. 2-Substantial/Maximal Assistance-helper does MORE THAN HALF the effort. [place] lifts or holds trunk or limbs and provides more than half the effort. 4-Hgjljjrcc-cinqcz does ALL the effort. Patient does none of the effort to complete the activity. Or, the assistance of 2 or more helpers is required for the patient to complete the activity. If activity was not attempted, code reason: 7-Patient Refused. 9-Not Applicable-not attempted and the patient did not perform the activity before the current illness, exacerbation or injury. 10-Not Attempted due to Environmental Limitations-(lack of equipment, weather restraints, etc.). 88-Not Attempted due to Medical Conditions or Safety Concerns. 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 Patients son reports patient does not like wearing his prosthesis, however to his knowledge there is no issues with the fit. Gait Training Does the Patient Walk?: No and Walking Goal NOT indicated Assessment Current Status: Poor Progress Pt performs rolling and lying to sitting transfer /c MAX assist. Sit to stand transfer performed /c MAX assist for lifting. Pt transferred from edge of bed to recliner /c MAX assist stand pivot transfer. He required frequent verbal cues t hroughout visit and appears very drowsy. Pt left in recliner post-treatment /c chair alarm on, call light in place, and all needs met. Continue to progress pt per POC. PT Hand Packer/Packager Goals Hand Packer/Packager Goals PT Nursing Home Goals Time Frame: Mar 07, 2023 Roll Left & Right (QC): 4 Sit to Lying (QC): 4 Lying-Sitting on Side/Bed(QC): 4 Sit to Stand (QC): 4 Chair/Ifa-wm-Wtitu Xfer(QC): 4 Toilet Transfer (QC): 4 Does the Patient Walk: No and Walking Goal NOT indicated PT Plan Treatment/Plan Treatment Plan: Continue Plan of Care Treatment Plan: Bed Mobility, Education, Functional Activity Vivi, Functional Strength, Group Therapy, Gait, Safety, Therapeutic Exercise, Transfers Treatment Duration: Mar 07, 2023 Frequency: 5 times per week Estimated Hrs Per Day: .25 hour per day Time Time In: 1352 Time Out: 1415 DATE: Feb 06, 2023 Total Billed Treatment Time: 23 Total Billed Treatment 1 visit FA x 2 JUNIE MADDOX STEAM OVEN OPERATOR Feb 06, 2023 16:26
[2023-02-06] MEDS: NS IV 1000 ML 1,000 ML IV SCH ×2 (19:44→20:00)
[2023-02-06 20:23] VITALS: BP 138/83
[2023-02-06] MEDS: LORazepam 1 MG TABLET PO PRN (21:20)
[2023-02-07] VITALS (9 sets, daily range): BP systolic 121–151; BP diastolic 75–98
[2023-02-07] MEDS: LORazepam 1 MG TABLET PO PRN (03:05)
[2023-02-07 04:59] LABS: BASOPHILS % (AUTO) 1 % (0-10); EOSINOPHILS # (AUTO) 0.2 10^3/uL (0.0-0.3); EOSINOPHILS % (AUTO) 4 % (0-10); HEMATOCRIT 42 % (40-54); HEMOGLOBIN 13.9 g/dL (13.3-17.7); LYMPHOCYTES % (AUTO) 19 % (12-44); MEAN CORPUSCULAR HEMOGLOBIN 32 pg (25-34); MEAN CORPUSCULAR HGB CONC 33 g/dL (32-36); MEAN CORPUSCULAR VOLUME 97 fL (80-99); MONOCYTES # (AUTO) 0.5 10^3/uL (0.0-1.0); MONOCYTES % (AUTO) 9 % (0-12); NEUTROPHILS # (AUTO) 3.6 10^3/uL (1.8-7.8); NEUTROPHILS % (AUTO) 67 % (42-75); PLATELET COUNT 113 10^3/uL (130-400); WHITE BLOOD COUNT 5.3 10^3/uL (4.3-11.0)
[2023-02-07 05:22] LABS: ALBUMIN 3.2 GM/DL (3.2-4.5); CALCIUM 8.7 MG/DL (8.5-10.1); CREATININE SERUM 1.13 MG/DL (0.60-1.30); TOTAL PROTEIN 5.9 GM/DL (6.4-8.2)
[2023-02-07] MEDS: ENOXAPARIN 40 MG/0.4 ML SYRINGE SC SCH (09:07)
[2023-02-07] MEDS: DOCUSATE SODIUM 100 MG CAPSULE PO SCH ×2 (09:07→19:31)
[2023-02-07] MEDS: SENNOSIDES 8.6 MG TABLET PO SCH ×2 (09:07→19:31)
[2023-02-07] MEDS: MAGNESIUM OXIDE 400 MG TABLET PO SCH (09:07)
[2023-02-07] MEDS: THIAMINE INJECTION 100 MG, FOLIC ACID INJECTION 1 MG, MAGNESIUM SULFATE 2 GM, MULTIVITA... IV SCH ×5 (09:38)
--- NOTE | 2023-02-07 09:51 | Progress Note ---
SIDNEY OLSON MD, RESIDENT 02/07/23 0951: Subjective HPI/CC On Admission Date Seen by Provider: Feb 07, 2023 Time Seen by Provider: 08:30 CC: Found down at home with end stage dementia HPI: Mr. Bauer was sleepy this morning. He is A&O to person and time, but not place. He denies having a bowel movement or urinating overnight. Difficult to obtain history from patient. He denies any SOB, chest pain, or dysuria. Subjective/Events-last exam Patient continues to be confused this morning. Did require a dose of Ativan last night as patient was agitated and getting out of bed. However did not require any doses of Ativan at all yesterday. He has no concerns this morning. Review of Systems General: No Fatigue HEENT: No Head Aches Pulmonary: No Dyspnea, No Cough Cardiovascular: No: Chest Pain, Palpitations, Edema Gastrointestinal: No: Nausea, Vomiting, Diarrhea, Constipation Genitourinary: No Dysuria Neurological: Confusion; No: Weakness Objective Exam Vital Signs Vital Signs Date Time Temp Pulse Resp B/P (MAP) Pulse Ox O2 Delivery O2 Flow Rate FiO2 02/07/23 07:25 36.4 79 16 146/89 (108) 97 Room Air 02/07/23 04:00 0.00 0.00 02/05/23 05:15 21 Capillary Refill : Less Than 3 Seconds General Appearance: No Apparent Distress HEENT: Normal ENT Inspection Neck: Full Range of Motion, Normal Inspection Respiratory: Chest Non Tender, Lungs Clear, Normal Breath Sounds, No Accessory Muscle Use, No Respiratory Distress Cardiovascular: Regular Rate, Rhythm, No Edema, No Murmur Gastrointestinal: Normal Bowel Sounds, Non Tender, Soft Extremity: No Pedal Edema, Other (Right AKA) Neurologic/Psychiatric: Alert, Disoriented Skin: Normal Color, Warm/Dry Lymphatic: No Adenopathy Results/Procedures Lab Laboratory Tests 02/07/23 04:48 Patient resulted labs reviewed. Assessment/Plan Assessment and Plan Assess & Plan/Chief Complaint Confusion, dehydration Diagnosis/Problems Diagnosis/Problems (1) Confusion Status: Chronic Assessment & Plan: Patient appears to have confusion and dementia at baseline. Plan: Continue frequent reorientation Continue one-to-one monitoring Avoid any altering medications We will plan to discharge to SNF (2) Mild dehydration Status: Resolved Assessment & Plan: Labs look stable today. Continue fluids and oral rehydrati on. Resolution Date/Time: 02/07/23 @ 09:49 (3) Hx of AKA (above knee amputation) Status: Chronic Qualifiers: Qualified Codes: Z89.611 - Acquired absence of right leg above knee (4) Alcohol use Status: Chronic Assessment & Plan: Alcohol level negative however there were concerns that patient was withdrawing. Is scoring on CIWA however this is unclear if this is due to patient's baseline dementia or withdrawal. Appears to be dementia related at this time. Plan: Discontinue CIWA protocol Continue thiamine and folic acid DANETTE JAUREGUI DO 02/07/232046: Subjective Subjective/Events-last exam Still very confused No falls Stopping Ativan Objective Exam General Appearance: Other (confused, chronically ill) Assessment/Plan Assessment and Plan Assess & Plan/Chief Complaint Confusion Alcohol withdrawal Dementia Plan [facility] SIDNEY OLSON MD, RESIDENT Feb 07, 2023 09:51 DANETTE JAUREGUI DO Feb 07, 2023 20:47
--- NOTE | 2023-02-07 14:40 | Physical Therapy Daily Note ---
PT Daily Note-Current Subjective Pt found lying in bed upon entry. Agreed to PT. States that he is feeling better than yesterday. Pt appears to be more alert today but when asked states that he does not know where he is. Pain Section J - Health Conditions 1. Rarely or not at all 2. Occasionally 3. Frequently 4. Almost constantly 8. Unable to answer Pain Effect on Sleep: 1 Pain Interference with Therapy: 1 Pain Interference w/Day-to-Day: 1 Mental Status Patient Orientation: Confused Attachments: IV Transfers SCALE: Activities may be completed with or without assistive devices. 6-Tqtogyaovt-ctckiqs completes the activity by him/herself with no assistance from a helper. 5-Set-up or Clean-up Assistance-helper sets up or cleans up; patient completes activity. [place] assists only prior to or following the activity. 4-Supervision or Touching Assistance-helper provides verbal cues and/or touching/steadying and/or contact guard assistance as patient completes activity. Assistance may be provided throughout the activity or intermittently. 3-Partial/Moderate Assistance-helper does LESS THAN HALF the effort. [place] lifts, holds or supports trunk or limbs, but provides less than half the effort. 2-Substantial/Maximal Assistance-helper does MORE THAN HALF the effort. [place] lifts or holds trunk or limbs and provides more than half the effort. 9-Niroihgem-uzqueu does ALL the effort. Patient does none of the effort to complete the activity. Or, the assistance of 2 or more helpers is required for the patient to complete the activity. If activity was not attempted, code reason: 7-Patient Refused. 9-Not Applicable-not attempted and the patient did not perform the activity before the current illness, exacerbation or injury. 10-Not Attempted due to Environmental Limitations-(lack of equipment, weather restraints, etc.). 88-Not Attempted due to Medical Conditions or Safety Concerns. 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 Patients son reports patient does not like wearing his prosthesis, however to his knowledge there is no issues with the fit. Gait Training Does the Patient Walk?: No and Walking Goal NOT indicated Assessment Current Status: Fair Progress Pt performs lying to sitting transfer /c MIN assist for LE lifting/lowering and moving trunk. He then performs a sit to stand transfer /c MIN assist from edge of bed. Verbal cues given for push off. Pt was then transferred from bed to chair /c MIN assist using a stand pivot transfer. Pt able to partially slide foot on floor while helper provided MIN steadying assistance. Pt left in recliner post-treatment /c call light in place and all needs met. Continue to progress pt per POC. PT Diesel Instructor Goals Diesel Instructor Goals PT Halfway Goals Time Frame: Mar 07, 2023 Roll Left & Right (QC): 4 Sit to Lying (QC): 4 Lying-Sitting on Side/Bed(QC): 4 Sit to Stand (QC): 4 Chair/Dhm-ts-Myptt Xfer(QC): 4 Toilet Transfer (QC): 4 Does the Patient Walk: No and Walking Goal NOT indicated PT Plan Treatment/Plan Treatment Plan: Continue Plan of Care Treatment Plan: Bed Mobility, Education, Functional Activity Vivi, Functional Strength, Group Therapy, Gait, Safety, Therapeutic Exercise, Transfers Treatment Duration: Mar 07, 2023 Frequency: 5 times per week Estimated Hrs Per Day: .25 hour per day Time Time In: 1407 Time Out: 1434 DATE: Feb 07, 2023 Total Billed Treatment Time: 27 Total Billed Treatment 1 visit FA x 2 JUNIE MADDOX PTA Feb 07, 2023 14:40
--- NOTE | 2023-02-07 15:27 | Discharge Inst-Skilled Nursing ---
Discharge Inst-Skilled NF Reconcile Patient Problems Problems Reviewed?: Yes Chief Complaint CC: Found down at home with end stage dementia HPI: Patient is a 77-year-old male who presented after being found down at home by his neighbor. On presentation to the ED he was noted to be confused and had signs of mild dehydration and thus was admitted for further management. Due to his alcohol use history, he was watched on the CIWA protocol. He did require some doses of Ativan however it did not seem to that he was withdrawing from alcohol and more so had dementia related agitation. We rehydrated him with fluids and he otherwise appeared to be improving. Did not require any further doses of Ativan. He is otherwise stable for discharge to a correction facility and will likely require less than 30 days at SNF. Patient Instructions Patient Problems: Dementia, alcohol use, right AKA Goal: Less than 30 days expected for SNF placement. Consult/Follow Up/Orders Skilled NF Admit to: [facility] and rehab Certification (SNF) I certify that SNF services are required to be given on an inpatient basis because of the above named patient's need for correction care on a continuing basis for the conditions(s) for which he/she was receiving inpatient hospital services prior to his/her transfer to the SNF. Prison Facility Order: Nursing Services, Emergency Preparedness Manager-Evaluate & Treat, Physical Therapy-Evaluate & Treat Oxygen Delivery Method: Room Air Discharge Diet: No Restrictions Daily Activity as Tolerated: Yes Resuscitation Status: Full Code New & Resume Previous Orders Sidney Lutz Feb 07, 2023 15:23 SIDNEY LUTZ MD, RESIDENT Feb 07, 2023 15:27
[2023-02-07] MEDS ORDERED: MULT-1137 PO ×2 (15:31→15:40)
[2023-02-07] MEDS ORDERED: LISI10TA25 PO ×2 (15:31→15:40)
[2023-02-07] MEDS ORDERED: GBPN600T PO ×2 (15:31→15:40)
[2023-02-07] MEDS ORDERED: FOLI1TAB33 PO ×2 (15:31→15:40)
[2023-02-07] MEDS ORDERED: ATOR40TA70 PO ×2 (15:31→15:40)
[2023-02-07] MEDS ORDERED: TMSL.4C PO ×2 (15:31→15:40)
[2023-02-07] MEDS ORDERED: CLOP75TA28 PO ×3 (15:31→16:22)
[2023-02-07] MEDS ORDERED: THIA100T80 PO ×2 (15:31→15:40)
[2023-02-07] MEDS: NS IV 1000 ML 1,000 ML IV SCH (18:13)
[2023-02-07] MEDS: MELATONIN 3 MG TABLET PO PRN (19:34)
[2023-02-07] MEDS: ACETAMINOPHEN 500 MG TABLET PO PRN (19:35)
[2023-02-07] MEDS ORDERED: HALOPERIDOL INJECTION 5 MG/ML VIAL IM PRN (21:45)
[2023-02-08 06:30] LABS: BASOPHILS % (AUTO) 1 % (0-10); EOSINOPHILS # (AUTO) 0.2 10^3/uL (0.0-0.3); EOSINOPHILS % (AUTO) 6 % (0-10); HEMATOCRIT 42 % (40-54); HEMOGLOBIN 13.9 g/dL (13.3-17.7); LYMPHOCYTES # (AUTO) 1.2 10^3/uL (1.0-4.0); LYMPHOCYTES % (AUTO) 30 % (12-44); MEAN CORPUSCULAR HEMOGLOBIN 32 pg (25-34); MEAN CORPUSCULAR HGB CONC 33 g/dL (32-36); MEAN CORPUSCULAR VOLUME 96 fL (80-99); MEAN PLATELET VOLUME 12.3 fL (9.0-12.2); MONOCYTES # (AUTO) 0.4 10^3/uL (0.0-1.0); MONOCYTES % (AUTO) 9 % (0-12); NEUTROPHILS # (AUTO) 2.2 10^3/uL (1.8-7.8); NEUTROPHILS % (AUTO) 54 % (42-75); PLATELET COUNT 133 10^3/uL (130-400); WHITE BLOOD COUNT 4.1 10^3/uL (4.3-11.0)
[2023-02-08] MEDS: THIAMINE 100 MG (VITAMIN B-1) TAB PO SCH (06:39)
[2023-02-08] MEDS: THERAPEUTIC MULTIVITAMIN W/MINERALS TABLET PO SCH (06:39)
[2023-02-08 06:45] LABS: ALBUMIN 3.2 GM/DL (3.2-4.5); POTASSIUM 3.9 MMOL/L (3.6-5.0)
[2023-02-08 06:47] LABS: TOTAL PROTEIN 6.2 GM/DL (6.4-8.2)
[2023-02-08 06:49] LABS: BILIRUBIN,TOTAL 0.9 MG/DL (0.1-1.0)
[2023-02-08 06:51] LABS: CREATININE SERUM 1.03 MG/DL (0.60-1.30)
[2023-02-08 07:49] VITALS: BP 154/66
[2023-02-08] MEDS: ENOXAPARIN 40 MG/0.4 ML SYRINGE SC SCH (08:37)
[2023-02-08] MEDS: DOCUSATE SODIUM 100 MG CAPSULE PO SCH ×2 (08:37→20:07)
[2023-02-08] MEDS: SENNOSIDES 8.6 MG TABLET PO SCH ×2 (08:37→20:07)
[2023-02-08] MEDS: FOLIC ACID 1 MG TAB PO SCH (08:37)
--- NOTE | 2023-02-08 09:22 | Progress Note ---
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 On presentation to the ED he was noted to be confused and had signs of mild dehydration and thus was admitted for further management. Due to his alcohol use history, he was watched on the CIWA protocol. He did require some doses of Ativan however it did not seem to that he was withdrawing from alcohol and more so had dementia related agitation. We rehydrated him with fluids and he otherwise appeared to be improving. Did not require any further doses of Ativan. He is otherwise stable for discharge to a [facility] facility and will likely require less than 30 days at SNF. Subjective/Events-last exam Patient was going to be discharged this morning to [facility] however became agitated yesterday night and required a dose of Ativan. He does not remember this event occurring last night. He otherwise has no concerns today. Review of Systems General: No Fatigue HEENT: No Head Aches Pulmonary: No Dyspnea, No Cough Cardiovascular: No: Chest Pain, Palpitations, Edema Gastrointestinal: No: Nausea, Vomiting, Diarrhea, Constipation Genitourinary: No Dysuria Neurological: Confusion Objective Exam Vital Signs Vital Signs Date Time Temp Pulse Resp B/P (MAP) Pulse Ox O2 Delivery O2 Flow Rate FiO2 02/08/23 07:49 36.6 88 20 154/66 (95) 99 Room Air 02/07/23 08:00 0.00 02/05/23 05:15 21 Capillary Refill : Less Than 3 Seconds General Appearance: No Apparent Distress HEENT: Normal ENT Inspection Neck: Full Range of Motion, Non Tender, Supple Respiratory: Chest Non Tender, Lungs Clear, Normal Breath Sounds, No Accessory Muscle Use, No Respiratory Distress Cardiovascular: Regular Rate, Rhythm, No Edema, No Murmur Gastrointestinal: Normal Bowel Sounds, Non Tender, Soft Extremity: Other (Right lower extremity AKA) Neurologic/Psychiatric: Alert, Other (Oriented x2 to person and time, not oriented to place) Skin: Normal Color, Warm/Dry Results/Procedures Lab Laboratory Tests 02/08/23 05:30 Patient resulted labs reviewed. Assessment/Plan Assessment and Plan Assess & Plan/Chief Complaint Confusion, dehydration Diagnosis/Problems Diagnosis/Problems (1) Confusion Status: Chronic Assessment & Plan: Patient appears to have confusion and dementia at baseline. Plan: Continue frequent reorientation Continue one-to-one monitoring Avoid any altering medications Likely plan for discharge to SNF on Saturday (2) Mild dehydration Status: Resolved Assessment & Plan: Labs look stable today. Continue fluids and oral rehydration. Resolution Date/Time: 02/07/23 @ 09:49 (3) Hx of AKA (above knee amputation) Status: Chronic Qualifiers: Qualified Codes: Z89.611 - Acquired absence of right leg above knee (4) Alcohol use Status: Chronic Assessment & Plan: Alcohol level negative however there were concerns that patient was withdrawing. Is scoring on CIWA however this is unclear if this is due to patient's baseline dementia or withdrawal. Appears to be dementia related at this time. Plan: Discontinue CIWA protocol Continue thiamine and folic acid DANETTE JAUREGUI DO 02/08/232044: Subjective Subjective/Events-last exam Patient had a difficult night Requiring sedation most of the night Patient more alert now He seems to have reset his cognition Objective Exam General Appearance: No Apparent Distress, WD/WN, Chronically ill Respiratory: Lungs Clear, Normal Breath Sounds Cardiovascular: Regular Rate, Rhythm Neurologic/Psychiatric: Alert, Disoriented, Other (Oriented x2 to person and t stephan, not oriented to place) Assessment/Plan Assessment and Plan Assess & Plan/Chief Complaint Much improved Sedative if needed SIDNEY OLSON MD, RESIDENT Feb 08, 2023 09:22 DANETTE JAUREGUI DO Feb 08, 2023 20:45
--- NOTE | 2023-02-08 09:46 | Physical Therapy Daily Note ---
PT Daily Note-Current Subjective Pt found supine in bed upon entry. Pt is confused. When asked where he was pre- treatment pt replied "[place]." Pt was then asked the same question near end of visit and replied "[place]." States that he thinks he slept good last night. No reports of pain. Pain Section J - Health Conditions 1. Rarely or not at all 2. Occasionally 3. Frequently 4. Almost constantly 8. Unable to answer Pain Effect on Sleep: 1 Pain Interference with Therapy: 1 Pain Interference w/Day-to-Day: 1 Mental Status Patient Orientation: Confused Transfers SCALE: Activities may be completed with or without assistive devices. 0-Gngyaufcrm-kgubsxe completes the activity by him/herself with no assistance from a helper. 5-Set-up or Clean-up Assistance-helper sets up or cleans up; patient completes activity. [place] assists only prior to or following the activity. 4-Supervision or Touching Assistance-helper provides verbal cues and/or touc zaki/steadying and/or contact guard assistance as patient completes activity. Assistance may be provided throughout the activity or intermittently. 3-Partial/Moderate Assistance-helper does LESS THAN HALF the effort. [place] lifts, holds or supports trunk or limbs, but provides less than half the effort. 2-Substantial/Maximal Assistance-helper does MORE THAN HALF the effort. [place] lifts or holds trunk or limbs and provides more than half the effort. 1-Jgjdvdnqm-hfmtbw does ALL the effort. Patient does none of the effort to complete the activity. Or, the assistance of 2 or more helpers is required for the patient to complete the activity. If activity was not attempted, code reason: 7-Patient Refused. 9-Not Applicable-not attempted and the patient did not perform the activity before the current illness, exacerbation or injury. 10-Not Attempted due to Environmental Limitations-(lack of equipment, weather restraints, etc.). 88-Not Attempted due to Medical Conditions or Safety Concerns. Lying to Sitting/Side of Bed(Q: 3 Sit to Stand (QC): 3 Chair/Mgx-xe-Yndvy Xfer(QC): 3 Weight Bearing Right Lower Extremity: Right Weight Bearing/Tolerated Left Lower Extremity: Left Weight Bearing/Tolerated Right Residual limb is an old amputation. Patients son reports patient does not like wearing his prosthesis, however to his knowledge there is no issues with the fit. Gait Training Does the Patient Walk?: No and Walking Goal NOT indicated Assessment Current Status: Poor Progress Pt performed lying to sitting transfer /c MIN assist to move legs to edge of bed and MIN assist for trunk lifting. Sit to stand and bed to chair transfer performed /c MIN assist for lifting and pivoting. Pt is confused throughout v isit but does not report or appear to have any pain. Pt positioned in recliner post-treatment /c call light in place, chair alarm set, and all needs met. Continue to progress pt per POC. 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 Time Frame: Mar 07, 2023 Roll Left & Right (QC): 4 Sit to Lying (QC): 4 Lying-Sitting on Side/Bed(QC): 4 Sit to Stand (QC): 4 Chair/Uqa-zr-Wukii Xfer(QC): 4 Toilet Transfer (QC): 4 Does the Patient Walk: No and Walking Goal NOT indicated PT Plan Treatment/Plan Treatment Plan: Continue Plan of Care Treatment Plan: Bed Mobility, Education, Functional Activity Vivi, Functional Strength, Group Therapy, Gait, Safety, Therapeutic Exercise, Transfers Treatment Duration: Mar 07, 2023 Frequency: 5 times per week Estimated Hrs Per Day: .25 hour per day Time Time In: 926 Time Out: 938 DATE: Feb 08, 2023 Total Billed Treatment Time: 12 Total Billed Treatment 1 visit FA x 1 JUNIE MADDOX PIT BOSS Feb 08, 2023 09:46
[2023-02-08 13:24] VITALS: BP 134/85
[2023-02-08 15:32] VITALS: BP 160/70
--- NOTE | 2023-02-08 17:06 | Physician Query-Final Dx ---
GABBY SOLIMAN 02/08/23 1705: Final Diagnosis Give Final Diagnosis Please give Final Diagnosis The medical record reflects the following clinical scenario: History/Risk factors: presented after being found down at home by his neighbor. On presentation to the ED he was noted to be confused and had signs of mild dehydration, Alcohol use in possible withdrawal on admission Clinical Findings: CK 2749 on admission, Cr 1.58 on admission decreased to 1.03, after fluids, Weakness and generalized aching, Cloudy yellow urine, Treatment: ER: Normal saline 2500 mL, Lab monitoring, Question: Is Rhabdomyolysis a clinically valid diagnosis? Rhabdomyolysis was documented in the H and P and 1 progress note as a possible cause for possible RODRIGO with no further documentation of Rhabdomyolysis in the medical record. If yes, please document in the Progress Notes and Discharge Summary. Yes, Rhabdomyolysis is clinically valid, and present on admission, condition resolved No, Rhabdomyolysis ruled out Other, with explanation of clinical findings Undetermined, no explanation for clinical findings In responding to this query, please exercise your independent professional judgment. The purpose of this communication is to more accurately reflect the complexity of your patients condition. The fact that a question is asked does not imply that any particular answer is desired or expected. Thank you for your timely response to this clarification. Gabby Soliman MSN, RN Clinical Cash Reconciliation Specialist [email or web address] DANETTE JAUREGUI DO 02/08/232014: Final Diagnosis Give Final Diagnosis rhabdomylosis GABBY SOLIMAN Feb 08, 2023 17:05 DANETTE JAUREGUI DO Feb 08, 2023 20:15
[2023-02-08] MEDS: MELATONIN 3 MG TABLET PO PRN (19:50)
[2023-02-08] MEDS: ACETAMINOPHEN 500 MG TABLET PO PRN (19:51)
[2023-02-09 00:09] VITALS: BP 140/78
[2023-02-09 05:38] LABS: BASOPHILS % (AUTO) 1 % (0-10); EOSINOPHILS # (AUTO) 0.2 10^3/uL (0.0-0.3); EOSINOPHILS % (AUTO) 6 % (0-10); HEMATOCRIT 40 % (40-54); HEMOGLOBIN 13.2 g/dL (13.3-17.7); LYMPHOCYTES # (AUTO) 1.2 10^3/uL (1.0-4.0); LYMPHOCYTES % (AUTO) 32 % (12-44); MEAN CORPUSCULAR HEMOGLOBIN 32 pg (25-34); MEAN CORPUSCULAR HGB CONC 33 g/dL (32-36); MEAN CORPUSCULAR VOLUME 97 fL (80-99); MEAN PLATELET VOLUME 12.2 fL (9.0-12.2); MONOCYTES # (AUTO) 0.3 10^3/uL (0.0-1.0); MONOCYTES % (AUTO) 9 % (0-12); NEUTROPHILS # (AUTO) 1.9 10^3/uL (1.8-7.8); NEUTROPHILS % (AUTO) 51 % (42-75); PLATELET COUNT 140 10^3/uL (130-400); WHITE BLOOD COUNT 3.8 10^3/uL (4.3-11.0)
[2023-02-09 05:49] LABS: ALBUMIN 3.2 GM/DL (3.2-4.5); POTASSIUM 3.8 MMOL/L (3.6-5.0)
[2023-02-09 05:50] LABS: CALCIUM 9.1 MG/DL (8.5-10.1)
[2023-02-09 05:52] LABS: TOTAL PROTEIN 6.1 GM/DL (6.4-8.2)
[2023-02-09 05:54] LABS: BILIRUBIN,TOTAL 0.8 MG/DL (0.1-1.0)
[2023-02-09 05:55] LABS: CREATININE SERUM 1.05 MG/DL (0.60-1.30)
[2023-02-09] MEDS: THIAMINE 100 MG (VITAMIN B-1) TAB PO SCH (06:04)
[2023-02-09] MEDS: THERAPEUTIC MULTIVITAMIN W/MINERALS TABLET PO SCH (06:04)
[2023-02-09 07:41] VITALS: BP 119/80
[2023-02-09] MEDS: FOLIC ACID 1 MG TAB PO SCH (09:27)
[2023-02-09] MEDS: ENOXAPARIN 40 MG/0.4 ML SYRINGE SC SCH (09:27)
[2023-02-09] MEDS: DOCUSATE SODIUM 100 MG CAPSULE PO SCH ×2 (09:27→20:15)
[2023-02-09] MEDS: SENNOSIDES 8.6 MG TABLET PO SCH ×2 (09:27→20:15)
--- NOTE | 2023-02-09 10:17 | Progress Note ---
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 On presentation to the ED he was noted to be confused and had signs of mild dehydration and thus was admitted for further management. Due to his alcohol use history, he was watched on the CIWA protocol. He did require some doses of Ativan however it did not seem to that he was withdrawing from alcohol and more so had dementia related agitation. We rehydrated him with fluids and he otherwise appeared to be improving. Did not require any further doses of Ativan. He is otherwise stable for discharge to a [facility] facility and will likely require less than 30 days at SNF. Subjective/Events-last exam No acute overnight events. Patient still requiring frequent reorientation throughout the day. No other concerns this morning Review of Systems General: No Chills, No Fatigue Pulmonary: No Dyspnea, No Cough Cardiovascular: No: Chest Pain, Palpitations, Edema Gastrointestinal: No: Nausea, Vomiting, Diarrhea, Constipation Genitourinary: No Dysuria Neurological: No: Weakness Objective Exam Vital Signs Vital Signs Date Time Temp Pulse Resp B/P (MAP) Pulse Ox O2 Delivery O2 Flow Rate FiO2 02/09/23 07:59 100 Room Air 0.00 02/09/23 07:41 36.5 89 16 119/80 (93) 02/05/23 05:15 21 Capillary Refill : Less Than 3 Seconds General Appearance: No Apparent Distress HEENT: PERRL/EOMI Neck: Full Range of Motion, Supple Respiratory: Chest Non Tender, Lungs Clear, Normal Breath Sounds, No Accessory Muscle Use, No Respiratory Distress Cardiovascular: Regular Rate, Rhythm, No Edema, No Murmur Gastrointestinal: Normal Bowel Sounds, Non Tender, Soft Extremity: No Pedal Edema, Other (Right lower extremity AKA) Neurologic/Psychiatric: Alert, Other (Oriented x2 to person and time.) Skin: Normal Color, Warm/Dry Results/Procedures Lab Laboratory Tests 02/09/23 05:20 Patient resulted labs reviewed. Assessment/Plan Assessment and Plan Assess & Plan/Chief Complaint Confusion, dehydration Diagnosis/Problems Diagnosis/Problems (1) Confusion Status: Chronic Assessment & Plan: Patient appears to have confusion and dementia at baseline. Plan: Continue frequent reorientation Continue one-to-one monitoring Avoid any altering medications Likely plan for discharge to SNF on Saturday (2) Mild dehydration Status: Resolved Assessment & Plan: Labs look stable today. Continue fluids and oral rehydration. Resolution Date/Time: 02/07/23 @ 09:49 (3) Hx of AKA (above knee amputation) Status: Chronic Qualifiers: Qualified Codes: Z89.611 - Acquired absence of right leg above knee (4) Alcohol use Status: Chronic Assessment & Plan: Alcohol level negative however there were concerns that patient was withdrawing. Is scoring on CIWA however this is unclear if this is due to patient's baseline dementia or withdrawal. Appears to be dementia related at this time. Plan: Discontinue CIWA protocol Continue thiamine and folic acid (5) Rhabdomyolysis Status: Resolved Assessment & Plan: Patient down for an unknown amount of time and had elevated creatinine kinase on presentation consistent with rhabdomyolysis. Resolved with fluids. Resolution Date/Time: 02/09/23 @ 10:17 DANETTE JAUREGUI DO 02/10/23 0543: Subjective Subjective/Events-last exam Patient much better More alert Needs long-term half-way Dementia is profound Objective Exam General Appearance: No Apparent Distress, WD/WN Respiratory: Lungs Clear Cardiovascular: Regular Rate, Rhythm Neurologic/Psychiatric: Alert, Disoriented Assessment/Plan Assessment and Plan Assess & Plan/Chief Complaint Supportive care alf on SaturdayI personally performed the almazan portions of the visit, discussed case with resident and concur with resident documentation of history, physical exam, assessment and treatment plan unless otherwise noted. SIDNEY OLSON MD, RESIDENT Feb 09, 2023 10:17 DANETTE JAUREGUI DO Feb 10, 2023 05:43
--- NOTE | 2023-02-09 11:01 | Physical Therapy Daily Note ---
PT Daily Note-Current Subjective States that he will try some bed exercises. Pain Numeric Pain Scale: 0-No Pain Section J - Health Conditions 1. Rarely or not at all 2. Occasionally 3. Frequently 4. Almost constantly 8. Unable to answer Pain Effect on Sleep: 1 Pain Interference with Therapy: 1 Pain Interference w/Day-to-Day: 1 Mental Status Patient Orientation: Person, Place, Time, Situation Transfers SCALE: Activities may be completed with or without assistive devices. 2-Nbhybjgydp-eziwyoc completes the activity by him/herself with no assistance from a helper. 5-Set-up or Clean-up Assistance-helper sets up or cleans up; patient completes activity. [place] assists only prior to or following the activity. 4-Supervision or Touching Assistance-helper provides verbal cues and/or touching/steadying and/or contact guard assistance as patient completes activity. Assistance may be provided throughout the activity or intermittently. 3-Partial/Moderate Assistance-helper does LESS THAN HALF the effort. [place] lifts, holds or supports trunk or limbs, but provides less than half the effort. 2-Substantial/Maximal Assistance-helper does MORE THAN HALF the effort. [place] lifts or holds trunk or limbs and provides more than half the effort. 4-Gvwsxkgmo-zbqpcy does ALL the effort. Patient does none of the effort to complete the activity. Or, the assistance of 2 or more helpers is required for the patient to complete the activity. If activity was not attempted, code reason: 7-Patient Refused. 9-Not Applicable-not attempted and the patient did not perform the activity before the current illness, exacerbation or injury. 10-Not Attempted due to Environmental Limitations-(lack of equipment, weather restraints, etc.). 88-Not Attempted due to Medical Conditions or Safety Concerns. Roll Left & Right (QC): 6 Sit to Lying (QC): 6 Lying to Sitting/Side of Bed(Q: 6 Weight Bearing Right Lower Extremity: Right Weight Bearing/Tolerated Left Lower Extremity: Left Weight Bearing/Tolerated Right Residual limb is an old amputation. Patients son reports patient does not like wearing his prosthesis, however to his knowledge there is no issues with the fit. Exercises Supine Ex: LE Protocol Supine Reps: 20 Seated Therapy Exercises: LE Protocol Seated Reps: 20 Assessment Current Status: Good Progress The patient did well with exercises today however he does continue to have confusion. 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 Maker Goals PT [facility] Goals Time Frame: Mar 07, 2023 Roll Left & Right (QC): 4 Sit to Lying (QC): 4 Lying-Sitting on Side/Bed(QC): 4 Sit to Stand (QC): 4 Chair/Egz-dk-Tayrw Xfer(QC): 4 Toilet Transfer (QC): 4 Does the Patient Walk: No and Walking Goal NOT indicated PT Plan Treatment/Plan Treatment Plan: Continue Plan of Care Treatment Plan: Bed Mobility, Education, Functional Activity Vivi, Functional Strength, Group Therapy, Gait, Safety, Therapeutic Exercise, Transfers Treatment Duration: Mar 07, 2023 Frequency: 5 times per week Estimated Hrs Per Day: .25 hour per day Time Time In: 1045 Time Out: 1055 DATE: Feb 09, 2023 Total Billed Treatment Time: 10 Total Billed Treatment 1, EX x 10' JUAN ADRIAN PT Feb 09, 2023 11:00
[2023-02-09 15:39] VITALS: BP 106/65
[2023-02-09] MEDS: MELATONIN 3 MG TABLET PO PRN (20:15)
[2023-02-09 23:43] VITALS: BP 156/97
[2023-02-10] MEDS: THERAPEUTIC MULTIVITAMIN W/MINERALS TABLET PO SCH (05:10)
[2023-02-10] MEDS: THIAMINE 100 MG (VITAMIN B-1) TAB PO SCH (05:10)
--- NOTE | 2023-02-10 06:01 | Progress Note - Hospitalist ---
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 On presentation to the ED he was noted to be confused and had signs of mild dehydration and thus was admitted for further management. Due to his alcohol use history, he was watched on the CIWA protocol. He did require some doses of Ativan however it did not seem to that he was withdrawing from alcohol and more so had dementia related agitation. We rehydrated him with fluids and he otherwise appeared to be improving. Did not require any further doses of Ativan. He is otherwise stable for discharge to a [facility] facility and will likely require less than 30 days at SNF. Subjective/Events-last exam Patient much better More lucid but still very demented Needs [facility] home tomorrow Objective Exam Vital Signs Vital Signs Date Time Temp Pulse Resp B/P (MAP) Pulse Ox O2 Delivery O2 Flow Rate FiO2 02/10/23 08:22 36.4 63 18 147/84 (105) 100 Room Air 02/10/23 08:00 0.00 02/05/23 05:15 21 Capillary Refill : Less Than 3 Seconds General Appearance: No Apparent Distress, WD/WN, Chronically ill Respiratory: Lungs Clear Cardiovascular: Regular Rate, Rhythm Neurologic/Psychiatric: Alert, Disoriented Results/Procedures Lab Laboratory Tests 02/10/23 06:43 02/10/23 06:46 Patient resulted labs reviewed. Assessment/Plan Assessment and Plan Assess & Plan/Chief Complaint (1) Confusion Status: Chronic Assessment & Plan: Patient appears to have confusion and dementia at baseline. Plan: Continue frequent reorientation Continue one-to-one monitoring Avoid any altering medications Likely plan for discharge to SNF on Saturday (2) Mild dehydration Status: Resolved Assessment & Plan: Labs look stable today. Continue fluids and oral rehydration. Resolution Date/Time: 02/07/23 @ 09:49 (3) Hx of AKA (above knee amputation) Status: Chronic Qualifiers: Qualified Codes: Z89.611 - Acquired absence of right leg above knee (4) Alcohol use Status: Chronic Assessment & Plan: Alcohol level negative however there were concerns that patient was withdrawing. Is scoring on CIWA however this is unclear if this is due to patient's baseline dementia or withdrawal. Appears to be dementia related at this time. Plan: Discontinue CIWA protocol Continue thiamine and folic acid DANETTE JAUREGUI DO Feb 10, 2023 06:01
[2023-02-10 07:00] LABS: BASOPHILS # (AUTO) 0.1 10^3/uL (0.0-0.1); BASOPHILS % (AUTO) 1 % (0-10); EOSINOPHILS # (AUTO) 0.2 10^3/uL (0.0-0.3); EOSINOPHILS % (AUTO) 4 % (0-10); HEMATOCRIT 41 % (40-54); HEMOGLOBIN 13.6 g/dL (13.3-17.7); LYMPHOCYTES % (AUTO) 22 % (12-44); MEAN CORPUSCULAR HEMOGLOBIN 32 pg (25-34); MEAN CORPUSCULAR HGB CONC 33 g/dL (32-36); MEAN CORPUSCULAR VOLUME 97 fL (80-99); MEAN PLATELET VOLUME 11.8 fL (9.0-12.2); MONOCYTES # (AUTO) 0.4 10^3/uL (0.0-1.0); MONOCYTES % (AUTO) 9 % (0-12); NEUTROPHILS # (AUTO) 2.9 10^3/uL (1.8-7.8); NEUTROPHILS % (AUTO) 63 % (42-75); PLATELET COUNT 131 10^3/uL (130-400); WHITE BLOOD COUNT 4.6 10^3/uL (4.3-11.0)
[2023-02-10 07:09] LABS: ALBUMIN 3.4 GM/DL (3.2-4.5)
[2023-02-10 07:10] LABS: POTASSIUM 4.2 MMOL/L (3.6-5.0)
[2023-02-10 07:11] LABS: CALCIUM 9.1 MG/DL (8.5-10.1)
[2023-02-10 07:12] LABS: TOTAL PROTEIN 6.6 GM/DL (6.4-8.2)
[2023-02-10 07:14] LABS: BILIRUBIN,TOTAL 0.2 MG/DL (0.1-1.0)
[2023-02-10 07:16] LABS: CREATININE SERUM 1.09 MG/DL (0.60-1.30)
[2023-02-10] MEDS: SENNOSIDES 8.6 MG TABLET PO SCH ×2 (08:17→19:14)
[2023-02-10] MEDS: DOCUSATE SODIUM 100 MG CAPSULE PO SCH ×2 (08:17→19:14)
[2023-02-10] MEDS: ENOXAPARIN 40 MG/0.4 ML SYRINGE SC SCH (08:18)
[2023-02-10] MEDS: FOLIC ACID 1 MG TAB PO SCH (08:18)
[2023-02-10 08:22] VITALS: BP_SYST 135; BP_SYST 147; BP_DIAS 70; BP_DIAS 84
[2023-02-10 15:59] VITALS: BP 132/80
[2023-02-10 23:14] VITALS: BP 137/82
[2023-02-11] MEDS: THERAPEUTIC MULTIVITAMIN W/MINERALS TABLET PO SCH (05:18)
[2023-02-11 05:42] LABS: BASOPHILS % (AUTO) 1 % (0-10); EOSINOPHILS # (AUTO) 0.2 10^3/uL (0.0-0.3); EOSINOPHILS % (AUTO) 3 % (0-10); HEMATOCRIT 42 % (40-54); HEMOGLOBIN 14.1 g/dL (13.3-17.7); LYMPHOCYTES # (AUTO) 1.2 10^3/uL (1.0-4.0); LYMPHOCYTES % (AUTO) 23 % (12-44); MEAN CORPUSCULAR HEMOGLOBIN 32 pg (25-34); MEAN CORPUSCULAR HGB CONC 33 g/dL (32-36); MEAN CORPUSCULAR VOLUME 96 fL (80-99); MEAN PLATELET VOLUME 12.3 fL (9.0-12.2); MONOCYTES # (AUTO) 0.4 10^3/uL (0.0-1.0); MONOCYTES % (AUTO) 8 % (0-12); NEUTROPHILS # (AUTO) 3.4 10^3/uL (1.8-7.8); NEUTROPHILS % (AUTO) 64 % (42-75); PLATELET COUNT 154 10^3/uL (130-400); WHITE BLOOD COUNT 5.3 10^3/uL (4.3-11.0)
[2023-02-11 06:08] LABS: ALBUMIN 3.6 GM/DL (3.2-4.5)
[2023-02-11 06:09] LABS: CALCIUM 9.2 MG/DL (8.5-10.1)
[2023-02-11 06:12] LABS: BILIRUBIN,TOTAL 0.7 MG/DL (0.1-1.0)
[2023-02-11 06:14] LABS: CREATININE SERUM 1.19 MG/DL (0.60-1.30)
[2023-02-11 08:05] VITALS: BP 124/78
[2023-02-11] MEDS: SENNOSIDES 8.6 MG TABLET PO SCH (08:26)
[2023-02-11] MEDS: DOCUSATE SODIUM 100 MG CAPSULE PO SCH (08:26)
[2023-02-11] MEDS: FOLIC ACID 1 MG TAB PO SCH (08:26)
[2023-02-11] MEDS: ENOXAPARIN 40 MG/0.4 ML SYRINGE SC SCH (08:26)
--- NOTE | 2023-02-11 08:54 | Discharge Summary ---
SIDNEY OLSON MD, RESIDENT 02/11/23 0854: Discharge Summary Hospital Course Problems/Diagnosis: (1) Confusion Status: Chronic Assessment & Plan: Patient appears to have confusion and dementia at baseline. Plan: Continue frequent reorientation Continue one-to-one monitoring Avoid any altering medications Discharge to SNF today (2) Mild dehydration Status: Resolved Resolution Date/Time: 02/07/23 @ 09:49 Assessment & Plan: Labs look stable today. Continue fluids and oral rehydration. (3) Hx of AKA (above knee amputation) Status: Chronic Qualifiers: Qualified Codes: Z89.611 - Acquired absence of right leg above knee (4) Alcohol use Status: Chronic Assessment & Plan: Alcohol level negative however there were concerns that patient was withdrawing. Was scoring on CIWA however this is unclear if this is due to patient's baseline dementia or withdrawal. Appears to be dementia related at this time. Plan: Discontinue CIWA protocol Continue thiamine and folic acid (5) Elevated LFTs Status: Acute Assessment & Plan: Noted to have elevated LFTs today with AST increasing from 46 to 57 and ALT increasing from 48 to 68. No abdominal tenderness or other symptoms at this time. Plan: Recommend following up in the outpatient Hospital Course Date of Admission: Feb 06, 2023 at 12:05 Admission Diagnosis : Family Physician/Provider: Jacques Kramer MD Date of Discharge: 02/11/23 Discharge Diagnosis: Confusion Hospital Course: Patient is a 77-year-old male with a past medical history of alcohol use, frequent UTIs who presented after being found down by his neighbor for an unknown amount of time. In the ED, patient was noted to be quite confused and was oriented to person only. CT head was negative. Labs were otherwise unremarkable however patient was ultimately admitted for further observation. There were no signs of infection although urine culture did grow Staph aureus, less than 10,000 however patient was recently on antibiotics and thus we opted not to treat as patient was improving without treatment. There were otherwise no other sources of infection. There were concerns that patient was withdrawing from alcohol and thus he was placed on the CIWA protocol initially, did require some doses of Ativan however he continued to show signs of agitation over many days and thus this was likely secondary to baseline dementia and not due to alcohol withdrawal. We continue to give Ativan as needed however through the weekend, patient did not require any further doses and had improving mentation. Prior to discharge, he was AAO x2 to person and time, not oriented to place. Discussions were had with patient's son who was informed that this is likely patient's baseline dementia and is likely to progress. Will discharge to [facility] in [place]. Prior to discharge, patient was noted to have e levated LFTs however he is otherwise stable and not having any abdominal tenderness. Would recommend following this up in the outpatient. Mr. Bauer was found fallen on the floor on yesterday by his neighbor and brought to the ED. The neighbor hadn't checked in on Mr. Bauer since Saturday and the time that Mr. Bauer was down is unknown as he is confused and current ly a poor historian. 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 CT head showed no signs of intracranial bleeding. This morning, Mr Bauer was oriented to person only, claiming he was still at home and the year was 1922. He also claimed to see a dog walk into the room with me this morning prior to rounding. Labs and Pending Lab Test: Laboratory Tests 02/11/23 05:05: White Blood Count 5.3, Red Blood Count 4.40, Hemoglobin 14.1, Hematocrit 42, Mean Corpuscular Volume 96, Mean Corpuscular Hemoglobin 32, Mean Corpuscular Hemoglobin Concent 33, Red Cell Distribution Width 13.6, Platelet Count 154, Mean Platelet Volume 12.3H, Immature Granulocyte % (Auto) 1, Neutrophils (%) (Auto) 64, Lymphocytes (%) (Auto) 23, Monocytes (%) (Auto) 8, Eosinophils (%) (Auto) 3, Basophils (%) (Auto) 1, Neutrophils # (Auto) 3.4, Lymphocytes # (Auto) 1.2, Monocytes # (Auto) 0.4, Eosinophils # (Auto) 0.2, Basophils # (Auto) 0.0, Immature Granulocyte # (Auto) 0.1, Sodium Level 137, Potassium Level 4.0, Chloride Level 108H, Carbon Dioxide Level 21, Anion Gap 8, Blood Urea Nitrogen 15, Creatinine 1.19, Estimat Glomerular Filtration Rate 64, BUN/Creatinine Ratio 13, Glucose Level 119H, Calcium Level 9.2, Corrected Calcium 9.5, Total Bilirubin 0.7, Aspartate Amino Transf (AST/SGOT) 57H, Alanine Aminotransferase (ALT/SGPT) 68H, Alkaline Phosphatase 49, Total Protein 7.0, Albumin 3.6 Microbiology 02/05/23 Urine Culture - Final, Complete Staphylococcus aureus Home Meds Active Clopidogrel (Clopidogrel Bisulfate) 75 Mg Tablet 75 Mg PO DAILY 30 Days Tab-A-Guillermo Multivit with Iron (Multivitamin/Iron/Folic Acid) 18 Mg Iron-400 Mcg Tablet 1 Ea PO DAILY@0700 30 Days Vitamin B-1 (Thiamine HCl) 100 Mg Tablet 100 Mg PO DAILY@0700 30 Days Folic Acid 1 Mg Tablet 1 Mg PO DAILY 30 Days Atorvastatin Calcium 40 Mg Tablet 40 Mg PO HS 30 Days Gabapentin 600 Mg Tablet 600 Mg PO TID 30 Days Lisinopril 10 Mg Tablet 10 Mg PO DAILY 30 Days Flomax (Tamsulosin HCl) 0.4 Mg Cap 0.4 Mg PO HS 30 Days Assessment/Pt DC Instructions Please see electronic discharge instructions given to patient. Discharge Diet: No Restrictions Activity as Tolerated: Yes Discharge Physical Examination Allergies: Coded Allergies: No Known Drug Allergies (Unverified , 01/08/23) General Appearance: No Apparent Distress HEENT: Normal ENT Inspection Respiratory: Chest Non Tender, Lungs Clear, Normal Breath Sounds, No Accessory Muscle Use, No Respiratory Distress Cardiovascular: Regular Rate, Rhythm, No Edema, No Murmur Gastrointestinal: Normal Bowel Sounds, Non Tender, Soft Extremity: Other (Right AKA) Skin: Normal Color, Warm/Dry Neurologic/Psychiatric: Alert, Other (Oriented x2 to person and time, not oriented to place) IMELDA LAU MD 02/11/23 1236: Discharge Summary Discharge Physical Examination Allergies: Coded Allergies: No Known Drug Allergies (Unverified , 01/08/23) Supervisory-Addendum Brief Supervisory Addendum I personally performed the almazan portions of the visit, discussed case with resident and concur with resident documentation of history, physical exam, assessment and treatment plan unless otherwise noted. SIDNEY OLSON MD, RESIDENT Feb 11, 2023 08:54 IMELDA LAU MD Feb 11, 2023 12:36
== END 2023-02-11 09:20 | DRG 565 ==
LOC: EDUNIT# 21:33 → ER FS 21:34 → 4TH 21:35 → UNDOADMOB 02-05 01:28 → 4TH 02-05 01:28 → OBSVTOIN 02-06 12:05 → INTOOBSV 02-06 12:05 → UNDODISIN 02-11 09:20
PROVIDERS: ADMIT Internal Medicine; ATTEND Family Medicine
DX: T79.6XXA Traumatic ischemia of muscle, initial encounter (principal); F10.239 Alcohol dependence with withdrawal, unspecified; N17.9 Acute kidney failure, unspecified; E86.0 Dehydration; Z89.611 Acquired absence of right leg above knee; R41.0 Disorientation, unspecified; I10 Essential (primary) hypertension; E78.5 Hyperlipidemia, unspecified; Z87.891 Personal history of nicotine dependence; F03.90 Unspecified dementia, unspecified severity, without behavioral disturbance, psychotic disturbance, mood disturbance, and anxiety; W18.30XA Fall on same level, unspecified, initial encounter; Y92.009 Unspecified place in unspecified non-institutional (private) residence as the place of occurrence of the external cause
CPT/HCPCS: 36415; 70450; 80048; 80053; 80306; 80320; 81000; 82550; 82947; 85025; 87088; 94760; G0378